=== PATIENT | male | born 1945 | race Caucasian/White ===

== ENCOUNTER 2017-01-28 21:07 | Emergency (ER) | payer MEDICARE ==
[2017-01-28] MEDS ORDERED: DIPH,PERTUS(ACELL)TETVAC-LF 0.5 ML VIAL IM ONE (21:17)
[2017-01-28] MEDS ORDERED: SODIUM CHLORIDE 0.9% 1,000 ML IV STA (21:17)
[2017-01-28 21:21] LABS: Glucose,Whole Blood 141 mg/dL (75-99)
[2017-01-28 21:23] LABS: Basophils # (A) 0.2 k/uL (0-0.2); Basophils % (A) 2 %; CH 29.7; Eosinophils # (A) 0.9 k/uL (0-0.7); Eosinophils % (A) 7 %; HDW 2.37; HGB 14.7 gm/dL (13.0-17.5); Luc % (Auto) 2; Lymphocytes % (A) 15 %; MCHC 31.9 g/dL (31.0-37.0); MCV 87.8 fL (80.0-100.0); Mean Platelet Volume 6.9; Monocytes # (A) 0.8 k/uL (0-1.0); Monocytes % (A) 6 %; Neutrophils % (A) 68 %; RBC 5.24 m/uL (4.30-5.90); RDW 14.7 % (11.5-15.5); WBC 13.1 k/uL (3.8-10.6); WBC (Perox) 12.24
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
[2017-01-28 21:35] LABS: Partial Thromboplastin Time 24.7 sec (22.0-30.0)
[2017-01-28 21:37] LABS: ALT 51 U/L (21-72); AST 27 U/L (17-59); Alcohol <10 mg/dL; Alkaline Phosphatase 69 U/L (38-126); Amylase 117 U/L (30-110); Anion Gap 10 mmol/L; Blood Urea Nitrogen 34 mg/dL (9-20); Calcium 9.2 mg/dL (8.4-10.2); Carbon Dioxide 24 mmol/L (22-30); Chloride 100 mmol/L (98-107); Glucose 121 mg/dL (74-99); Non-African American GFR(MDRD) >60 (>60 ml/min/1.73 sqM); Potassium 4.9 mmol/L (3.5-5.1); Sodium 134 mmol/L (137-145); Total Bilirubin 0.6 mg/dL (0.2-1.3); Total Protein 6.5 g/dL (6.3-8.2)
[2017-01-28 21:38] VITALS: BP 139/91; PULSE 71; RESP 18; TEMP 98.1
[2017-01-28] MEDS ORDERED: MORPHINE SULFATE 4 MG/ML SYRINGE IVP STA (21:40)
[2017-01-28 21:42] LABS: Prothrombin Time 10.6 sec (9.0-12.0)
[2017-01-28 21:44] LABS: Creatine Kinase 85 U/L (55-170)
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
[2017-01-28 21:58] LABS: Creatine Kinase MB 1.2 ng/mL (0.0-2.4); Troponin I <0.012 ng/mL (0.000-0.034)
== END 2017-01-28 21:43 | disposition short-term general hospital (02) ==
LOC: EC 21:07
DX: T20.19XA Burn of first degree of multiple sites of head, face, and neck, initial encounter (principal); T21.19XA Burn of first degree of other site of trunk, initial encounter; T22.10XA Burn of first degree of shoulder and upper limb, except wrist and hand, unspecified site, initial encounter; T31.22 Burns involving 20-29% of body surface with 20-29% third degree burns; T59.811A Toxic effect of smoke, accidental (unintentional), initial encounter; J70.5 Respiratory conditions due to smoke inhalation; J45.909 Unspecified asthma, uncomplicated; I10 Essential (primary) hypertension; I25.10 Atherosclerotic heart disease of native coronary artery without angina pectoris; Z79.51 Long term (current) use of inhaled steroids; Z79.82 Long term (current) use of aspirin; Z79.899 Other long term (current) drug therapy; Z88.7 Allergy status to serum and vaccine; Z91.013 Allergy to seafood; Z91.030 Bee allergy status; Z91.048 Other nonmedicinal substance allergy status; W40.1XXA Explosion of explosive gases, initial encounter; Y92.009 Unspecified place in unspecified non-institutional (private) residence as the place of occurrence of the external cause; Y93.89 Activity, other specified
CPT/HCPCS: 99291; 96374; 36415; 86900; 86901; 80053; 82150; 82550; 82553; 83605; 83690; 84484; 85025; 85610; 85730; 86850; 80320; 71010; J2270; 93005

== ENCOUNTER → 2017-07-17 | Outpatient (CLI) | payer MEDICARE ==
[2017-07-17 16:01] LABS: Basophils # (A) 0.1 k/uL (0-0.2); Basophils % (A) 1 %; Eosinophils # (A) 0.7 k/uL (0-0.7); Eosinophils % (A) 7 %; HCT 44.6 % (39.0-53.0); HGB 13.8 gm/dL (13.0-17.5); Lymphocytes # (A) 1.7 k/uL (1.0-4.8); Lymphocytes % (A) 18 %; MCH 27.8 pg (25.0-35.0); MCV 89.8 fL (80.0-100.0); Mean Platelet Volume 6.7; Monocytes # (A) 0.5 k/uL (0-1.0); Monocytes % (A) 5 %; Neutrophils # (A) 6.6 k/uL (1.3-7.7); Neutrophils % (A) 68 %; Platelet Count 304 k/uL (150-450); RBC 4.96 m/uL (4.30-5.90); RDW 15.1 % (11.5-15.5); WBC 9.7 k/uL (3.8-10.6)
[2017-07-17 16:13] LABS: Anion Gap 9 mmol/L; Blood Urea Nitrogen 31 mg/dL (9-20); Calcium 9.2 mg/dL (8.4-10.2); Carbon Dioxide 27 mmol/L (22-30); Chloride 104 mmol/L (98-107); Glucose 94 mg/dL (74-99); Phosphorus 4.9 mg/dL (2.5-4.5); Potassium 4.9 mmol/L (3.5-5.1); Sodium 140 mmol/L (137-145)
[2017-07-17 16:39] LABS: Amorphous Sediment,Urine Rare /hpf; Appearance,Urine Clear (Clear); Bacteria,Urine Rare /hpf; Bilirubin,Urine Negative (Negative); Blood,Urine Small (Negative); Color,Urine Yellow; Glucose,Urine (UA) Negative (Negative); Ketones,Urine Negative (Negative); Leukocyte Esterase,Urine Negative (Negative); Mucus,Urine Rare /hpf; Nitrite,Urine Negative (Negative); PH, Urine 5.5 (5.0-8.0); Protein,Urine 2+ (Negative); RBC,Urine 2 /hpf (0-5); Specific Gravity,Urine 1.018 (1.001-1.035); Urobilinogen,Urine <2.0 mg/dL (<2.0); WBC,Urine 1 /hpf (0-5)
[2017-07-17 20:23] LABS: Creatinine,Urine Random 104.6 mg/dL
== END | disposition home or self-care (01) ==
LOC: LABWHC1 15:44
PROVIDERS: ATTEND Internal Medicine Nephrology
DX: N18.3 Chronic kidney disease, stage 3 (moderate) (principal)
CPT/HCPCS: 36415; 80048; 81001; 82570; 83970; 84100; 84156; 85025

== ENCOUNTER → 2017-11-21 | Outpatient (CLI) | payer MEDICARE ==
[2017-11-21 10:12] LABS: Appearance,Urine Clear (Clear); Bilirubin,Urine Negative (Negative); Blood,Urine Trace (Negative); Color,Urine Yellow; Glucose,Urine (UA) Negative (Negative); Ketones,Urine Negative (Negative); Leukocyte Esterase,Urine Negative (Negative); Mucus,Urine Rare /hpf; Nitrite,Urine Negative (Negative); PH, Urine 6.5 (5.0-8.0); Protein,Urine 2+ (Negative); RBC,Urine 1 /hpf (0-5); Specific Gravity,Urine 1.019 (1.001-1.035); Squamous Epithelial Cell,Urine <1 /hpf (0-4); Urobilinogen,Urine <2.0 mg/dL (<2.0); WBC,Urine <1 /hpf (0-5)
[2017-11-21 10:27] LABS: Creatinine,Urine Random 95.2 mg/dL
== END | disposition home or self-care (01) ==
LOC: LABWHC1 08:49
PROVIDERS: ATTEND Internal Medicine Nephrology
DX: N18.3 Chronic kidney disease, stage 3 (moderate) (principal)
CPT/HCPCS: 81001; 82570; 84156

== ENCOUNTER → 2018-02-03 | Outpatient (CLI) | payer MEDICARE ==
--- NOTE | 2018-02-03 18:00 | CONS ---
CONSULTATION DATE OF SERVICE: 02/03/2018 This patient is a 72-year-old gentleman who has been followed in the sleep center for treatment of obstructive sleep apnea-hypopnea syndrome. Patient continues to use his CPAP equipment successfully. Sometimes he feels dryness in his mouth. Sometimes he takes his mask off during the second part of the night. [place] Sleepiness Scale today is 14. I checked his CPAP unit. CPAP pressure is 11 cm of water. Usage for the last month is 100% of the nights, 30/30 nights, for more than 4 hours, average 6 hours. Leak is 22 L/minute, which is acceptable. Apnea-hypopnea index reading is only 2.3, which is totally normal. MEDICATIONS: 1. Lisinopril. 2. Furosemide. 3. Spironolactone. 4. Symbicort. 5. Aspirin. PHYSICAL EXAMINATION: GENERAL A pleasant patient in no distress. VITAL SIGNS: BP 107/74, HR 65, RR 18, height 5 feet 9-1/2 inches, weight 230.4, body mass index 33.4, temperature 98.2, oxygen saturation at room air 94%. HEENT: PERRLA, EOMI. Evaluation of oropharynx showed tongue protrudes midline; moderately low position of soft palate. Restriction of nasal breathing. NECK: Supple. No JVD. Thyroid is not palpable. LUNGS: Clear to percussion and to auscultation. Good air exchange. No wheezing or rhonchi. HEART: S1, S2 regular. No murmurs, gallops or rubs. ABDOMEN: Soft and nontender. Bowel sounds are present. No organomegaly appreciated. EXTREMITIES : No clubbing or cyanosis. BILLING DEPARTMENT SUPERVISOR: Awake, alert, and oriented X3. Cranial nerves 2 to 7 intact. There is no fasciculation or atrophy. noted. No focal deficits observed. Mild finger tremor. IMPRESSION: 1. Obstructive sleep apnea-hypopnea syndrome. Patient demonstrated 100% compliance with treatment, benefitting from treatment. 2. Hypertension. 3. History of asthma. 4. Parkinson disease. 5. Obesity. PLAN: 1. I showed the patient how to adjust his heated humidifier in the machine. I changed this regimen to manual and we increased the level of humidity to the level of 6 instead of level 4 as it was before. 2. Patient will continue to use CPAP every night. 3. Watching weight. 4. Sleep hygiene with regular time in bed for at least 8 hours. 5. No driving if feeling any sleepiness. 6. Prescription for all necessary CPAP supplies, including [place] mask, tube, filters. 7. Follow-up visit in 1 year or earlier if patient has any problems. Thank you very much for allowing me to participate in the management of your patient. Sincerely, Juan Carlos Brock MD, PhD, FAASM Diplomat of [place] [employer] [place] [employer] Architect of [facility] [place] MMODL / LOISN: [id number] /
== END | disposition home or self-care (01) ==
LOC: SLEEP 16:16
PROVIDERS: ATTEND Internal Medicine
DX: G47.33 Obstructive sleep apnea (adult) (pediatric) (principal); G20 Parkinson's disease; E66.9 Obesity, unspecified; I10 Essential (primary) hypertension; J45.909 Unspecified asthma, uncomplicated; Z99.89 Dependence on other enabling machines and devices; Z79.82 Long term (current) use of aspirin; Z79.899 Other long term (current) drug therapy; Z79.51 Long term (current) use of inhaled steroids; Z68.33 Body mass index [BMI] 33.0-33.9, adult

== ENCOUNTER → 2018-03-15 | Outpatient (CLI) | payer MEDICARE ==
[2018-03-15 14:17] LABS: HCT 43.4 % (39.0-53.0); HGB 13.9 gm/dL (13.0-17.5); MCH 27.9 pg (25.0-35.0); MCHC 32.1 g/dL (31.0-37.0); Mean Platelet Volume 6.5; Platelet Count 283 k/uL (150-450); RBC 4.98 m/uL (4.30-5.90); RDW 14.2 % (11.5-15.5); WBC 7.6 k/uL (3.8-10.6)
[2018-03-15 14:28] LABS: Anion Gap 7 mmol/L; Blood Urea Nitrogen 29 mg/dL (9-20); Calcium 8.8 mg/dL (8.4-10.2); Carbon Dioxide 26 mmol/L (22-30); Chloride 105 mmol/L (98-107); Glucose 111 mg/dL (74-99); Phosphorus 3.1 mg/dL (2.5-4.5); Sodium 138 mmol/L (137-145)
[2018-03-15 14:31] LABS: Appearance,Urine Clear (Clear); Bilirubin,Urine Negative (Negative); Blood,Urine Trace (Negative); Color,Urine Yellow; Glucose,Urine (UA) Negative (Negative); Ketones,Urine Negative (Negative); Leukocyte Esterase,Urine Negative (Negative); Mucus,Urine Rare /hpf; Nitrite,Urine Negative (Negative); PH, Urine 6.5 (5.0-8.0); Protein,Urine 2+ (Negative); RBC,Urine 4 /hpf (0-5); Specific Gravity,Urine 1.013 (1.001-1.035); Urobilinogen,Urine <2.0 mg/dL (<2.0); WBC,Urine 1 /hpf (0-5)
[2018-03-15 14:56] LABS: Creatinine,Urine Random 60.3 mg/dL
== END | disposition home or self-care (01) ==
LOC: LABWHC1 13:41
PROVIDERS: ATTEND Internal Medicine Nephrology
DX: I12.9 Hypertensive chronic kidney disease with stage 1 through stage 4 chronic kidney disease, or unspecified chronic kidney disease (principal); N18.3 Chronic kidney disease, stage 3 (moderate); R80.9 Proteinuria, unspecified; R60.9 Edema, unspecified
CPT/HCPCS: 36415; 80048; 81001; 82570; 83970; 84100; 84156; 85027

== ENCOUNTER → 2019-04-15 | Outpatient (CLI) | payer MEDICARE ==
[2019-04-15 14:58] LABS: Basophils # (A) 0.1 k/uL (0-0.2); Basophils % (A) 1 %; Eosinophils # (A) 0.6 k/uL (0-0.7); Eosinophils % (A) 7 %; HGB 14.7 gm/dL (13.0-17.5); Lymphocytes # (A) 1.8 k/uL (1.0-4.8); Lymphocytes % (A) 20 %; MCH 28.9 pg (25.0-35.0); MCHC 32.7 g/dL (31.0-37.0); MCV 88.2 fL (80.0-100.0); Mean Platelet Volume 6.2; Monocytes # (A) 0.6 k/uL (0-1.0); Monocytes % (A) 6 %; Neutrophils # (A) 5.9 k/uL (1.3-7.7); Neutrophils % (A) 65 %; Platelet Count 338 k/uL (150-450); RDW 13.9 % (11.5-15.5)
[2019-04-15 15:10] LABS: Appearance,Urine Clear (Clear); Bilirubin,Urine Negative (Negative); Blood,Urine Small (Negative); Color,Urine Yellow; Glucose,Urine (UA) Negative (Negative); Hyaline Casts,Urine 3 /lpf (0-2); Ketones,Urine Negative (Negative); Leukocyte Esterase,Urine Negative (Negative); Mucus,Urine Rare /hpf; Nitrite,Urine Negative (Negative); PH, Urine 5.5 (5.0-8.0); Protein,Urine 2+ (Negative); RBC,Urine <1 /hpf (0-5); Specific Gravity,Urine 1.015 (1.001-1.035); Urobilinogen,Urine <2.0 mg/dL (<2.0); WBC,Urine <1 /hpf (0-5)
[2019-04-15 19:09] LABS: African American GFR (CKD) 86.2 (60.0-200.0); Albumin 4.3 g/dL (3.80-4.90); Albumin/Globulin Ratio 2.15 (1.60-3.17); Anion Gap 8.8 mmol/L (4.00-12.00); Calcium 9.4 mg/dL (8.7-10.3); Carbon Dioxide 27.2 mmol/L (21.6-31.8); Phosphorus 3.8 mg/dL (2.4-5.1); Potassium 4.7 mmol/L (3.5-5.5); Total Protein 6.3 g/dL (6.2-8.2)
[2019-04-15 20:02] LABS: Creatinine,Urine Random 70.6 mg/dL
[2019-04-15 20:35] LABS: Total Protein,Urine Random 281.8 mg/dL (0.0-13.5)
== END ==
LOC: LABWHC1 13:45
PROVIDERS: ATTEND Internal Medicine Nephrology
DX: R80.9 Proteinuria, unspecified (principal)
CPT/HCPCS: 36415; 80053; 81001; 82570; 83970; 84100; 84156; 85025

== ENCOUNTER → 2024-01-01 | Outpatient (CLI) | payer MEDICARE ==
[2024-01-01 20:24] LABS: HCT 41.4 % (39.6-50.0); HGB 13.3 g/dL (13.0-17.0); MCH 29.2 pg (27.0-32.0); MCHC 32.1 g/dL (32.0-37.0); MCV 90.8 FL (80.0-97.0); Mean Platelet Volume 9.6 FL (9.5-12.2); NRBC Per 100 WBC 0 X 10*3/uL (0.00-0.01); Platelet Count 308 X 10*3/uL (140-440); RBC 4.56 X 10*6/uL (4.40-5.60); WBC 7.36 X 10*3/uL (4.50-10.00)
[2024-01-01 21:08] LABS: ALT 5 U/L (10-49); AST 21 U/L (14-35); Albumin 4.3 g/dL (3.8-4.9); Albumin/Globulin Ratio 1.87 Ratio (1.60-3.17); Alkaline Phosphatase 70 U/L (41-126); BUN/Creat Ratio 23.06 Ratio (12.00-20.00); Blood Urea Nitrogen 36.9 mg/dL (9.0-27.0); Calcium 9.2 mg/dL (8.7-10.3); Carbon Dioxide 21.6 mmol/L (21.6-31.8); Chloride 104 mmol/L (96-109); Chol/HDL Ratio 5.86 Ratio; Globulin 2.3 g/dL (1.6-3.3); Glucose 96 mg/dL (70-110); LDL Cholesterol,Calculated 182.4 mg/dL (0.0-131.0); Magnesium 2.2 mg/dL (1.5-2.4); Potassium 5.2 mmol/L (3.5-5.5); Sodium 138 mmol/L (135-145); T4, Free (Free Thyroxine) 1.37 ng/dL (0.80-1.80); Total Bilirubin 0.7 mg/dL (0.3-1.2); Total Protein 6.6 g/dL (6.2-8.2)
[2024-01-02 11:47] LABS: Appearance,Urine Clear (Clear); Bilirubin,Urine Negative (Negative); Blood,Urine Negative (Negative); Color,Urine Yellow (Yellow); Ketones,Urine Negative (Negative); Nitrite,Urine Negative (Negative); PH, Urine 5.5; Specific Gravity,Urine 1.017 (1.001-1.030); Urobilinogen,Urine 0.2 E.U./DL
[2024-01-02 12:01] LABS: Bacteria,Urine None Seen (None Seen)
== END | disposition home or self-care (01) ==
LOC: LABWHC1 15:07
PROVIDERS: ATTEND Internal Medicine Cardiovascular Disease
DX: I11.9 Hypertensive heart disease without heart failure (principal); I48.19 Other persistent atrial fibrillation; E78.5 Hyperlipidemia, unspecified; E55.9 Vitamin D deficiency, unspecified; R68.89 Other general symptoms and signs; R79.9 Abnormal finding of blood chemistry, unspecified; R53.83 Other fatigue; R39.9 Unspecified symptoms and signs involving the genitourinary system
CPT/HCPCS: 36415; 80053; 80061; 81001; 82306; 83036; 83735; 84153; 84403; 84439; 84443; 85027

== ENCOUNTER 2025-01-07 19:00 | Inpatient (IN) | payer MEDICARE ==
--- NOTE | 2025-01-07 19:22 | ED ---
Dizziness HPI - General Chief Complaint: Syncope Stated Complaint: Hypotenstion Time Seen by Provider: 01/07/25 19:05 Source: patient, RN notes reviewed, old records reviewed Mode of arrival: EMS Limitations: no limitations - History of Present Illness Initial Comments: This is a 79-year-old male to the ER for evaluation patient presents today for evaluation of a syncopal event occurred while outside doing lawn work. Patient has symptoms of lightheadedness and dizziness and weakness here in the ER also complaining of abdominal pain. History of heart disease MD Complaint: dizziness, lightheadedness, other (Patient did have a syncopal event) History of Same: Yes History of Trauma: Yes Severity: severe Worsens With: nothing Associated Symptoms: loss of appetite, shortness of breath, weakness - Related Data Home Medications Medication Instructions Recorded Confirmed Budesonide-Formot 160-4.5 Mcg 2 puff INHALATION RT-BID PRN 03/13/15 01/07/25 [Symbicort 160-4.5 Mcg Inhaler] EPINEPHrine [Epipen 2-Adolfo] 0.3 mg IM ONCE PRN 01/28/17 01/07/25 Spironolactone [Aldactone] 25 mg PO DAILY 01/28/17 01/07/25 lisinopriL [Zestril] 10 mg PO BID 01/28/17 01/07/25 Amiodarone [Cordarone] 200 mg PO DAILY 01/07/25 01/07/25 Apixaban [Eliquis] 5 mg PO BID 01/07/25 01/07/25 Carbidopa-Levodopa 25-100 mg 1.5 tab PO TID 01/07/25 01/07/25 [Sinemet 25-100] Memantine [Namenda] 10 mg PO BID 01/07/25 01/07/25 Venlafaxine HCl [Effexor XR] 75 mg PO DAILY 01/07/25 01/07/25 Allergies Allergy/AdvReac Type Severity Reaction Status Date / Time iodine Allergy Rash/Hives Verified 01/07/25 19:41 shellfish derived [Shellfish] Allergy Unknown Verified 01/07/25 19:41 tetanus and diphtheria Allergy Unknown Verified 01/07/25 19:41 toxoids [tetanus & diphtheria toxoids] venom-honey bee Allergy Anaphylaxis Verified 01/07/25 19:41 [bee venom (honey bee)] Review of Systems ROS Statement: Those systems with pertinent positive or pertinent negative responses have been documented in the HPI. ROS Other: All systems not noted in ROS Statement are negative. Past Medical History Past Medical History: Asthma, Coronary Artery Disease (CAD), Cancer, Hypertension, Prostate Disorder, Thyroid Disorder History of Any Multi-Drug Resistant Organisms: None Reported Past Surgical History: Hernia Repair, Prostate Surgery, Tonsillectomy Additional Past Surgical History / Comment(s): cardiac angioplasty Past Psychological History: No Psychological Hx Reported Smoking Status: Never smoker Past Alcohol Use History: Occasional Past Drug Use History: None Reported General Exam Limitations: no limitations General appearance: alert, in no apparent distress Head exam: Present: atraumatic, normocephalic, normal inspection Eye exam: Present: normal appearance, PERRL, EOMI. Absent: scleral icterus, conjunctival injection, periorbital swelling ENT exam: Present: normal exam, mucous membranes moist Neck exam: Present: normal inspection. Absent: tenderness, meningismus, lymphadenopathy Respiratory exam: Present: normal lung sounds bilaterally. Absent: respiratory distress, wheezes, rales, rhonchi, stridor Cardiovascular Exam: Present: regular rate, normal rhythm, normal heart sounds. Absent: systolic murmur, diastolic murmur, rubs, gallop, clicks GI/Abdominal exam: Present: soft, normal bowel sounds. Absent: distended, tenderness, guarding, rebound, rigid Extremities exam: Present: normal inspection, full ROM, normal capillary refill. Absent: tenderness, pedal edema, joint swelling, calf tenderness Back exam: Present: normal inspection Neurological exam: Present: alert, oriented X3, CN II-XII intact Psychiatric exam: Present: normal affect, normal mood Skin exam: Present: warm, dry, intact, normal color. Absent: rash Course Vital Signs 01/07/25 01/07/25 01/07/25 19:03 19:33 20:42 Temperature 97.5 F L Pulse Rate 61 55 L 52 L Respiratory 20 17 17 Rate Blood Pressure 74/43 111/69 98/75 O2 Sat by Pulse 91 L 98 Oximetry 01/07/25 01/07/25 01/07/25 21:00 21:06 22:30 Temperature Pulse Rate 53 L 47 L 61 Respiratory 17 17 17 Rate Blood Pressure 67/51 74/50 81/56 O2 Sat by Pulse 95 Oximetry - Reevaluation(s) Reevaluation #1: 01/07/25 23:02 Medical records reviewed Patient seen and emergency department by Dr. Obando cardiology regarding bradycardia and hypotension Reevaluation #2: 01/07/25 23:02 Patient's blood pressure remains labile but improving Dopamine for low heart rate low blood pressure Reevaluation #3: 01/07/25 23:02 Patient informed of results and questions answered Reevaluation #4: Was pt. sent in by a medical professional or institution (, [facility], RELIABILITY TECHNICIAN, urgent care, hospital, or [facility]...) When possible be specific @ -no Did you speak to anyone other than the patient for history (EMS, parent, family, police, friend...)? What history was obtained from this source @ -no Did you review nursing and triage notes (agree or disagree)? Why? @ -agree Are old charts reviewed (outside hosp., previous admission, EMS record, old EKG, old radiological studies, urgent care reports/EKG's, [facility] records)? Report findings @ -yes Differential Diagnosis (chest pain, altered mental status, abdominal pain women, abdominal pain men, vaginal bleeding, weakness, fever, dyspnea, syncope, he adache, dizziness, GI bleed, back pain, seizure, CVA, palpatations, mental health, musculoskeletal)? @ -prior EKG interpreted by me (3pts min.). @ -yes X-rays interpreted by me (1pt min.). @ -yes negative for acute disease CT interpreted by me (1pt min.). @ -no U/S interpreted by me (1pt. min.). @ -no What testing was considered but not performed or refused? (CT, X-rays, U/S, labs)? Why? @ -none What meds were considered but not given or refused? Why? @ -none Did you discuss the management of the patient with other professionals (professionals i.e. [facility], RELIABILITY TECHNICIAN, lab, RT, psych nurse, social worker palliative care, risk control manager, teacher, combat information center officer, case coordinator)? Give summary @ -no Was smoking cessation discussed for >3mins.? @ -no Was critical care preformed (if so, how long)? @ -no Were there social determinants of health that impacted care today? How? (Homelessness, low income, unemployed, alcoholism, drug addiction, transportation, low edu. Level, literacy, decrease access to med. care, alf, rehab)? @ -none Was there de-escalation of care discussed even if they declined (Discuss DNR or withdrawal of care, Hospice)? DNR status @ -no What co-morbidities impacted this encounter? (DM, HTN, Smoking, COPD, CAD, Cancer, CVA, ARF, Chemo, Hep., AIDS, mental health diagnosis, sleep apnea, m orbid obesity)? @ -none Was patient admitted / discharged? Hospital course, mention meds given and route, prescriptions, significant lab abnormalities, going to OR and other pertinent info. @ - Undiagnosed new problem with uncertain prognosis? @ -no Drug Therapy requiring intensive monitoring for toxicity (Heparin, Nitro, Insulin, Cardizem)? @ -no Were any procedures done? @ -no Diagnosis/symptom? @ - Acute, or Chronic, or Acute on Chronic? @ -Acute Uncomplicated (without systemic symptoms) or Complicated (systemic symptoms)? @ -Complicated Side effects of treatment? @ -no Exacerbation, Progression, or Severe Exacerbation? @ -exacerbation Poses a threat to life or bodily function? How? (Chest pain, USA, SC, pneumonia, PE, COPD, DKA, ARF, appy, cholecystitis, CVA, Diverticulitis, Homicidal, Suicidal, threat to staff... and all critical care pts) @ -yes Reevaluation #5: Related for differential Syncope: Valvular disease, hypertrophic cardiomyopathy, pulmonary embolism, tamponade, tachycardia, bradycardia, SC, hypovolemia, hemorrhage, dissection, anemia, intracranial hemorrhage, seizure, hypoglycemia, carbon monoxide poisoning, this is not meant to be an all-inclusive list. - Consultations Consultation #1: Spoke with linda who agrees to admit this patient EKG Findings - EKG Comments: EKG Findings:: EKG is bradycardia 49 [place] 161 QRS 121 QTc 462 - EKG Results: EKG: interpreted by RONEN Medical Decision Making - Medical Decision Making 79 male syncopal event bradycardia hypotension we will admit for cardiac observation - Lab Data Result diagrams: 01/07/25 19:23 01/07/25 19:23 Lab Results 01/07/25 01/07/25 01/07/25 Range/Units 19:23 19:23 19:23 WBC 15.53 H (4.50-10.00) 10*3/uL RBC 3.79 L (4.40-5.60) 10*6/uL Hgb 11.7 L (13.0-17.0) g/dL Hct 35.6 L (39.6-50.0) % MCV 93.9 (80.0-97.0) fL MCH 30.9 (27.0-32.0) pg MCHC 32.9 (32.0-37.0) g/dL Plt Count 267 (140-440) 10*3/uL MPV 9.1 L (9.5-12.2) fL Immature Gran % (Auto) 0.5 % Neutrophils % 81.9 % Lymphocytes % 9.7 % Monocytes % 5.3 % Eosinophils % 2.1 % Basophils % 0.5 % Immature Gran # 0.08 H (0.00-0.04) 10*3/uL Neutrophils # 12.72 H (1.80-7.70) 10*3/uL Lymphocytes # 1.50 (0.90-5.00) 10*3/uL Monocytes # 0.83 (0.20-1.00) 10*3/uL Eosinophils # 0.32 (0.04-0.35) 10*3/uL Basophils # 0.08 (0.00-0.10) 10*3/uL PT 11.3 (10.0-12.5) sec INR 1.0 (<1.2) APTT 19.7 L (22.0-30.0) sec Sodium 138 (137-145) mmol/L Potassium 5.0 (3.5-5.1) mmol/L Chloride 108 H (98-107) mmol/L Carbon Dioxide 19 L (22-30) mmol/L Anion Gap 11 mmol/L BUN 53 H (9-20) mg/dL Creatinine 2.16 H (0.66-1.25) mg/dL Est GFR (CKD-EPI)AfAm 32 (>60 ml/min/1.73 sqM) Est GFR (CKD-EPI)NonAf 28 (>60 ml/min/1.73 sqM) Glucose 156 H (74-99) mg/dL Plasma Lactic Acid Obie (0.7-2.0) mmol/L Calcium 8.5 (8.4-10.2) mg/dL Phosphorus 4.8 H (2.5-4.5) mg/dL Magnesium 2.6 H (1.6-2.3) mg/dL Total Bilirubin 0.7 (0.2-1.3) mg/dL AST 28 (17-59) U/L ALT 8 (4-49) U/L Alkaline Phosphatase 58 (38-126) U/L Creatine Kinase (55-170) U/L Troponin I (0.000-0.034) ng/mL NT-Pro-B Natriuret Pep 561 pg/mL Total Protein 5.7 L (6.3-8.2) g/dL Albumin 3.5 (3.5-5.0) g/dL TSH 4.250 (0.465-4.680) mIU/L Urine Color Urine Appearance (Clear) Urine pH (5.0-8.0) Ur Specific Preston (1.001-1.035) Urine Protein (Negative) Urine Glucose (UA) (Negative) Urine Ketones (Negative) Urine Blood (Negative) Urine Nitrite (Negative) Urine Bilirubin (Negative) Urine Urobilinogen (<2.0) mg/dL Ur Leukocyte Esterase (Negative) Urine RBC (0-5) /hpf Urine WBC (0-5) /hpf Amorphous Sediment (None) /hpf Urine Bacteria (None) /hpf Hyaline Casts (0-2) /lpf Urine Mucus (None) /hpf 01/07/25 01/07/25 01/07/25 Range/Units 19:23 19:23 19:23 WBC (4.50-10.00) 10*3/uL RBC (4.40-5.60) 10*6/uL Hgb (13.0-17.0) g/dL Hct (39.6-50.0) % MCV (80.0-97.0) fL MCH (27.0-32.0) pg MCHC (32.0-37.0) g/dL Plt Count (140-440) 10*3/uL MPV (9.5-12.2) fL Immature Gran % (Auto) % Neutrophils % % Lymphocytes % % Monocytes % % Eosinophils % % Basophils % % Immature Gran # (0.00-0.04) 10*3/uL Neutrophils # (1.80-7.70) 10*3/uL Lymphocytes # (0.90-5.00) 10*3/uL Monocytes # (0.20-1.00) 10*3/uL Eosinophils # (0.04-0.35) 10*3/uL Basophils # (0.00-0.10) 10*3/uL PT (10.0-12.5) sec INR (<1.2) APTT (22.0-30.0) sec Sodium (137-145) mmol/L Potassium (3.5-5.1) mmol/L Chloride (98-107) mmol/L Carbon Dioxide (22-30) mmol/L Anion Gap mmol/L BUN (9-20) mg/dL Creatinine (0.66-1.25) mg/dL Est GFR (CKD-EPI)AfAm (>60 ml/min/1.73 sqM) Est GFR (CKD-EPI)NonAf (>60 ml/min/1.73 sqM) Glucose (74-99) mg/dL Plasma Lactic Acid Obie 1.7 (0.7-2.0) mmol/L Calcium (8.4-10.2) mg/dL Phosphorus (2.5-4.5) mg/dL Magnesium (1.6-2.3) mg/dL Total Bilirubin (0.2-1.3) mg/dL AST (17-59) U/L ALT (4-49) U/L Alkaline Phosphatase (38-126) U/L Creatine Kinase 101 (55-170) U/L Troponin I <0.012 (0.000-0.034) ng/mL NT-Pro-B Natriuret Pep pg/mL Total Protein (6.3-8.2) g/dL Albumin (3.5-5.0) g/dL TSH (0.465-4.680) mIU/L Urine Color Urine Appearance (Clear) Urine pH (5.0-8.0) Ur Specific Preston (1.001-1.035) Urine Protein (Negative) Urine Glucose (UA) (Negative) Urine Ketones (Negative) Urine Blood (Negative) Urine Nitrite (Negative) Urine Bilirubin (Negative) Urine Urobilinogen (<2.0) mg/dL Ur Leukocyte Esterase (Negative) Urine RBC (0-5) /hpf Urine WBC (0-5) /hpf Amorphous Sediment (None) /hpf Urine Bacteria (None) /hpf Hyaline Casts (0-2) /lpf Urine Mucus (None) /hpf 01/07/25 Range/Units 21:30 WBC (4.50-10.00) 10*3/uL RBC (4.40-5.60) 10*6/uL Hgb (13.0-17.0) g/dL Hct (39.6-50.0) % MCV (80.0-97.0) fL MCH (27.0-32.0) pg MCHC (32.0-37.0) g/dL Plt Count (140-440) 10*3/uL MPV (9.5-12.2) fL Immature Gran % (Auto) % Neutrophils % % Lymphocytes % % Monocytes % % Eosinophils % % Basophils % % Immature Gran # (0.00-0.04) 10*3/uL Neutrophils # (1.80-7.70) 10*3/uL Lymphocytes # (0.90-5.00) 10*3/uL Monocytes # (0.20-1.00) 10*3/uL Eosinophils # (0.04-0.35) 10*3/uL Basophils # (0.00-0.10) 10*3/uL PT (10.0-12.5) sec INR (<1.2) APTT (22.0-30.0) sec Sodium (137-145) mmol/L Potassium (3.5-5.1) mmol/L Chloride (98-107) mmol/L Carbon Dioxide (22-30) mmol/L Anion Gap mmol/L BUN (9-20) mg/dL Creatinine (0.66-1.25) mg/dL Est GFR (CKD-EPI)AfAm (>60 ml/min/1.73 sqM) Est GFR (CKD-EPI)NonAf (>60 ml/min/1.73 sqM) Glucose (74-99) mg/dL Plasma Lactic Acid Obie (0.7-2.0) mmol/L Calcium (8.4-10.2) mg/dL Phosphorus (2.5-4.5) mg/dL Magnesium (1.6-2.3) mg/dL Total Bilirubin (0.2-1.3) mg/dL AST (17-59) U/L ALT (4-49) U/L Alkaline Phosphatase (38-126) U/L Creatine Kinase (55-170) U/L Troponin I (0.000-0.034) ng/mL NT-Pro-B Natriuret Pep pg/mL Total Protein (6.3-8.2) g/dL Albumin (3.5-5.0) g/dL TSH (0.465-4.680) mIU/L Urine Color Yellow Urine Appearance Clear (Clear) Urine pH 5.5 (5.0-8.0) Ur Specific Preston 1.011 (1.001-1.035) Urine Protein 1+ H (Negative) Urine Glucose (UA) Negative (Negative) Urine Ketones Negative (Negative) Urine Blood Negative (Negative) Urine Nitrite Negative (Negative) Urine Bilirubin Negative (Negative) Urine Urobilinogen 2.0 (<2.0) mg/dL Ur Leukocyte Esterase Negative (Negative) Urine RBC <1 (0-5) /hpf Urine WBC 6 H (0-5) /hpf Amorphous Sediment Rare H (None) /hpf Urine Bacteria Rare H (None) /hpf Hyaline Casts 21 H (0-2) /lpf Urine Mucus Rare H (None) /hpf - EKG Data -: EKG Interpreted by Me (EKG is sinus bradycardia 49 [place] 161 QRS 121 QTc 462) Critical Care Time Critical Care Time: Yes Total Critical Care Time: 31 Disposition Clinical Impression: Syncope, Syncope due to orthostatic hypotension, Bradycardia Disposition: ADMITTED IP TO THIS HOSP Condition: Serious Is patient prescribed a controlled substance at d/c from ED?: No Time of Disposition: 22:30
[2025-01-07 19:38] LABS: Basophils # (A) 0.08 10*3/uL (0.00-0.10); Basophils % (A) 0.5 %; Eosinophils # (A) 0.32 10*3/uL (0.04-0.35); Eosinophils % (A) 2.1 %; HCT 35.6 % (39.6-50.0); HGB 11.7 g/dL (13.0-17.0); Lymphocytes # (A) 1.50 10*3/uL (0.90-5.00); Lymphocytes % (A) 9.7 %; MCH 30.9 pg (27.0-32.0); MCHC 32.9 g/dL (32.0-37.0); MCV 93.9 fL (80.0-97.0); Monocytes # (A) 0.83 10*3/uL (0.20-1.00); Monocytes % (A) 5.3 %; Neutrophils # (A) 12.72 10*3/uL (1.80-7.70); Neutrophils % (A) 81.9 %; Platelet Count 267 10*3/uL (140-440); RBC 3.79 10*6/uL (4.40-5.60); RDW 13.9 % (11.5-14.5); WBC 15.53 10*3/uL (4.50-10.00)
[2025-01-07] MEDS: FAMOTIDINE 20 MG/2 ML VIAL IV STA (19:57)
[2025-01-07] MEDS: methylPREDNISolone SOD SUCCI 125 MG/2 ML VIAL IV STA (19:59)
[2025-01-07] MEDS: diphenhydrAMINE 50 MG/ML 1 ML VIAL IVP STA (20:00)
[2025-01-07 20:03] LABS: ALT 8 U/L (4-49); AST 28 U/L (17-59); African American GFR (CKD) 32 (>60 ml/min/1.73 sqM); Albumin 3.5 g/dL (3.5-5.0); Alkaline Phosphatase 58 U/L (38-126); Anion Gap 11 mmol/L; Blood Urea Nitrogen 53 mg/dL (9-20); Calcium 8.5 mg/dL (8.4-10.2); Carbon Dioxide 19 mmol/L (22-30); Chloride 108 mmol/L (98-107); Glucose 156 mg/dL (74-99); Magnesium 2.6 mg/dL (1.6-2.3); Non-African American GFR(CKD) 28 (>60 ml/min/1.73 sqM); Potassium 5.0 mmol/L (3.5-5.1); Sodium 138 mmol/L (137-145); Total Protein 5.7 g/dL (6.3-8.2)
[2025-01-07] MEDS: SODIUM CHLORIDE 0.9% 1,000 ML IV SCH (20:05)
[2025-01-07 20:09] LABS: INR 1.0 (<1.2); Prothrombin Time 11.3 sec (10.0-12.5)
[2025-01-07 20:10] LABS: Partial Thromboplastin Time 19.7 sec (22.0-30.0)
[2025-01-07 20:11] LABS: NT-Pro-B-Type Natriuretic Pept 561 pg/mL
[2025-01-07] MEDS: HYDROCORTISONE SUCCINATE 100 MG/2 ML VIAL IV STA (21:11)
[2025-01-07] MEDS: ATROPINE SULFATE 0.1 MG/ML 10ML SYRINGE IV STA (21:13)
[2025-01-07] MEDS: SODIUM CHLORIDE 0.9% 500 ML 500 ML IV ONE (21:16)
--- NOTE | 2025-01-07 21:33 | CT ---
EXAMINATION TYPE: CT abdomen pelvis wo con DATE OF EXAM: 01/07/2025 8:34 PM COMPARISON: CT abdomen pelvis most recent from CLINICAL INDICATION: Male, 79 years old with history of pain; pain TECHNIQUE: Axial CT abdomen pelvis wo con;Sagittal and coronal reformats were created on a separate workstation. Oral contrast used: without Oral Contrast (none if empty) CT DLP: 1068.4 mGycm, Automated exposure control for dose reduction was used. FINDINGS: LOWER CHEST: Infiltrating opacities at the lung bases which could reflect atelectasis and/or pneumoni a. ABDOMEN LIVER: Unremarkable GALLBLADDER AND BILE DUCTS: Layering increased densities within the lumen consistent with gallstones are present. PANCREAS: Unremarkable. SPLEEN: Unremarkable. ADRENAL GLANDS: Unremarkable. KIDNEYS AND URETERS: No evidence of hydronephrosis or renal calculus. The ureters are unremarkable. Simple fluid cystic structure adjacent to the left kidney and left upper quadrant measuring 9.0 cm. PELVIS BLADDER: No evidence for wall thickening or mass given limitations of exam. REPRODUCTIVE: Unremarkable. ABDOMEN & PELVIS STOMACH AND BOWEL: Stomach and duodenum are unremarkable. Impacted rectosigmoid colonic stool burden with associated wall thickening and adjacent mesenteric stranding suggesting stercoral colitis. Diffu se liquid stool more proximal throughout the large bowel. Colonic diverticulosis. Large volume No hank dence of bowel obstruction. PERITONEUM/RETROPERITONEUM: No evidence of pneumoperitoneum or free fluid. VASCULATURE: No evidence of aortic aneurysm. MUSCULOSKELETAL: No acute osseous abnormalities. Anterolisthesis of L4 on L5. Osseous structures laisha neralized. LYMPH NODES: No gross evidence for lymphadenopathy. SOFT TISSUE/ABDOMINAL WALL: Fat-containing left inguinal hernia. IMPRESSION: 1. Large volume impacted rectosigmoid colonic stool burden with additional findings suggestive of st ercoral colitis. 2. Large volume liquid colonic stool burden upstream to region of impacted stool. 3. Lower lobe infiltrative opacities suggestive of atelectasis and/or pneumonia. [facility], , 01/07/2025 9:30 PM
[2025-01-07 21:44] LABS: Amorphous Sediment,Urine Rare /hpf; Bacteria,Urine Rare /hpf; Bilirubin,Urine Negative (Negative); Blood,Urine Negative (Negative); Color,Urine Yellow; Glucose,Urine (UA) Negative (Negative); Hyaline Casts,Urine 21 /lpf (0-2); Ketones,Urine Negative (Negative); Leukocyte Esterase,Urine Negative (Negative); Mucus,Urine Rare /hpf; Nitrite,Urine Negative (Negative); PH, Urine 5.5 (5.0-8.0); Protein,Urine 1+ (Negative); RBC,Urine <1 /hpf (0-5); Specific Gravity,Urine 1.011 (1.001-1.035); Urobilinogen,Urine 2.0 mg/dL (<2.0); WBC,Urine 6 /hpf (0-5)
[2025-01-07] MEDS ORDERED: NALOXONE 0.4 MG/ML 1 ML VIAL IV PRN (22:08)
[2025-01-07] MEDS: DEXTROSE 5%-0.45% NACL 1,000 ML IV SCH (22:34)
--- NOTE | 2025-01-07 23:46 | P.HPIM ---
History of Present Illness H&P Date: 01/07/25 Chief Complaint: Abdominal pain and dizziness with low blood pressure 79 year old male with history of atrial fibrillation, Parkinson's disease, and chronic kidney disease presents with abdominal pain and episode of dizziness. Patient reports feeling better than on arrival but continues to have abdominal pain. Episode began after carrying a 35-pound bag of bird food approximately 30-40 feet, after which patient became "wiped out." Patient measured blood pressure at home which was 44/30. Patient reports history of gastrointestinal bleeding episodes at home, typically seeing small amounts of blood with wiping, but today's episode was different with a larger amount of blood noted. Patient has been taking prunes and Dulcolax recently for constipation, resulting in liquid stools. Patient denies chest pain, trouble breathing, fevers, or chills. Patient is able to ur inate normally. while in the ICU , patient had an episode of bloody loose stool and became hypotensive with positive orthostatic , no chest pain no trouble breathing Patient denies tobacco, alcohol, or drug use. PMHx Atrial fibrillation, Parkinson's disease, chronic kidney disease. Patient has h istory of gastrointestinal bleeding and has had colonoscopies with polyp removal. Patient denies history of diabetes, stroke, heart attack, COPD, seizures, or hypertension. Review of systems All systems reviewed with pertinent positive negatives as per HPI Gastrointestinal: Abdominal pain, history of gastrointestinal bleeding, liquid stools related to laxative use Genitourinary: Able to urinate normally Constitutional: Denies fevers or chills Cardiovascular: Episode of dizziness and low blood pressure Pulmonary: Denies chest pain or trouble breathing Neurological: History of Parkinson's disease on exam Constitutional: No acute distress, conversant, pleasant Eyes: Anicteric sclerae, moist conjunctiva, Pupils equal round reactive to light ENMT: NC/AT Oropharynx clear, no erythema, or exudates Neck: Supple, no masses, or JVD No carotid bruits No thyromegaly Lungs: Clear to auscultation Clear to percussion Normal respiratory effort, no accessory muscle use Cardiovascular: Heart regular in rate and rhythm, No murmurs, gallops, or rubs No peripheral edema Abdominal: Soft, moderate distention , increase tympanic note to percussion Nontender, no guarding, rebound or rigidity Abdomen moving with respiration Extremities: No digital cyanosis No clubbing Pedal pulses intact and symmetrical Radial pulses intact and symmetrical No calf tenderness Psychiatric: Alert and oriented to person, place and time Appropriate affect fair judgement Neuro Muscles Strength 5/5 in all 4 extremities Sensation to light touch grossly present throughout Cranial nerves II-XII grossly intact Past Medical History Past Medical History: Asthma, Coronary Artery Disease (CAD), Cancer, Hypertension, Prostate Disorder, Thyroid Disorder History of Any Multi-Drug Resistant Organisms: None Reported Past Surgical History: Hernia Repair, Prostate Surgery, Tonsillectomy Additional Past Surgical History / Comment(s): cardiac angioplasty Past Psychological History: No Psychological Hx Reported Smoking Status: Never smoker Past Alcohol Use History: Occasional Past Drug Use History: None Reported - Past Family History Father Family Medical History: Myocardial Infarction ([place]) Medications and Allergies Home Medications Medication Instructions Recorded Confirmed Type Budesonide-Formot 160-4.5 Mcg 2 puff INHALATION RT-BID PRN 03/13/15 01/07/25 History [Symbicort 160-4.5 Mcg Inhaler] EPINEPHrine [Epipen 2-Adolfo] 0.3 mg IM ONCE PRN 01/28/17 01/07/25 History Spironolactone [Aldactone] 25 mg PO DAILY 01/28/17 01/07/25 History lisinopriL [Zestril] 10 mg PO BID 01/28/17 01/07/25 History Amiodarone [Cordarone] 200 mg PO DAILY 01/07/25 01/07/25 History Apixaban [Eliquis] 5 mg PO BID 01/07/25 01/07/25 History Carbidopa-Levodopa 25-100 mg 1.5 tab PO TID 01/07/25 01/07/25 History [Sinemet 25-100] Memantine [Namenda] 10 mg PO BID 01/07/25 01/07/25 History Venlafaxine HCl [Effexor XR] 75 mg PO DAILY 01/07/25 01/07/25 History Allergies Allergy/AdvReac Type Severity Reaction Status Date / Time iodine Allergy Rash/Hives Verified 01/07/25 19:41 shellfish derived [Shellfish] Allergy Unknown Verified 01/07/25 19:41 tetanus and diphtheria Allergy Unknown Verified 01/07/25 19:41 toxoids [tetanus & diphtheria toxoids] venom-honey bee Allergy Anaphylaxis Verified 01/07/25 19:41 [bee venom (honey bee)] Physical Exam Vitals: Vital Signs Temp Pulse Resp BP Pulse Ox 01/07/25 22:30 61 17 81/56 95 01/07/25 21:06 47 L 17 74/50 01/07/25 21:00 53 L 17 67/51 01/07/25 20:42 52 L 17 98/75 01/07/25 19:33 55 L 17 111/69 98 01/07/25 19:03 97.5 F L 61 20 74/43 91 L Intake and Output 01/07/25 01/07/25 01/08/25 14:59 22:59 06:59 Output Total 500 Balance -500 Output: Urine 500 Uretheral (Peñaloza) 500 Other: Weight 97.522 kg Results CBC & Chem 7: 01/08/25 05:40 01/08/25 05:24 Labs: Abnormal Lab Results - Last 24 Hours (Table) 01/07/25 01/07/25 01/07/25 Range/Units 19:23 19:23 19:23 WBC 15.53 H (4.50-10.00) 10*3/uL RBC 3.79 L (4.40-5.60) 10*6/uL Hgb 11.7 L (13.0-17.0) g/dL Hct 35.6 L (39.6-50.0) % MPV 9.1 L (9.5-12.2) fL Immature Gran # 0.08 H (0.00-0.04) 10*3/uL Neutrophils # 12.72 H (1.80-7.70) 10*3/uL APTT 19.7 L (22.0-30.0) sec Chloride 108 H (98-107) mmol/L Carbon Dioxide 19 L (22-30) mmol/L BUN 53 H (9-20) mg/dL Creatinine 2.16 H (0.66-1.25) mg/dL Glucose 156 H (74-99) mg/dL Phosphorus 4.8 H (2.5-4.5) mg/dL Magnesium 2.6 H (1.6-2.3) mg/dL Total Protein 5.7 L (6.3-8.2) g/dL Urine Protein (Negative) Urine WBC (0-5) /hpf Amorphous Sediment (None) /hpf Urine Bacteria (None) /hpf Hyaline Casts (0-2) /lpf Urine Mucus (None) /hpf 01/07/25 Range/Units 21:30 WBC (4.50-10.00) 10*3/uL RBC (4.40-5.60) 10*6/uL Hgb (13.0-17.0) g/dL Hct (39.6-50.0) % MPV (9.5-12.2) fL Immature Gran # (0.00-0.04) 10*3/uL Neutrophils # (1.80-7.70) 10*3/uL APTT (22.0-30.0) sec Chloride (98-107) mmol/L Carbon Dioxide (22-30) mmol/L BUN (9-20) mg/dL Creatinine (0.66-1.25) mg/dL Glucose (74-99) mg/dL Phosphorus (2.5-4.5) mg/dL Magnesium (1.6-2.3) mg/dL Total Protein (6.3-8.2) g/dL Urine Protein 1+ H (Negative) Urine WBC 6 H (0-5) /hpf Amorphous Sediment Rare H (None) /hpf Urine Bacteria Rare H (None) /hpf Hyaline Casts 21 H (0-2) /lpf Urine Mucus Rare H (None) /hpf Assessment and Plan Assessment: Patient with history of atrial fibrillation, Parkinson's disease, and chronic kidney disease presenting with gastrointestinal bleeding, orthostatic hypo tension, and acute kidney injury. 1. Gastrointestinal bleeding: - Patient reports larger than usual bleeding episode - History of previous GI bleeding and polyp removal - Plan: Surgery consultation for evaluation, monitor hemoglobin levels every 6 hours hold [facility] 2. Orthostatic hypotension: - Blood pressure dropped to 44/30 at home after exertion - Likely related to dehydration, possible bleeding - Plan: IV fluid resuscitation, 1 L bolus then maintain on 125 cc per hour LR monitor blood pressure positive orthosatic vitals 3. Acute kidney injury on chronic kidney disease: non oliguric - Creatinine elevated to 2.16, BUN 53 - Possibly related to dehydration or medication effects - Plan: Monitor renal function, investigate contributing factors monitor urine output 4. Bradycardia with prolonged QT interval: - Heart rate was initially slow but normalized without intervention - Plan: Cardiology consultation for evaluation 5. Atrial fibrillation: - Hold Eliquis anticoagulation due to GI bleeding 6. Parkinson's disease: - Continue current neurologist management DVT PPX SCD due to GI bleed Laboratory results: - Hemoglobin: 11.7 - White blood cell count: 15.5 (elevated) - Sodium: 138 - Potassium: 5 - BUN: 53 (elevated) - Creatinine: 2.16 (elevated, acute on chronic kidney injury) - Phosphorus: 4.8 - Magnesium: 2.6 - Troponins: Negative - Urinalysis: Unremarkable Imaging: - CT abdomen: Shows stool burden with liquid stool, consistent with patient's constipation history EKG: Bradycardia with prolonged QT interval
[2025-01-08 00:46] LABS: Glucose,Whole Blood 187 mg/dL (70-110)
[2025-01-08] MEDS: DOPamine DRIP 800 MG in DEXTROSE/WATER 1 250ML.BAG IV ONE (01:35)
[2025-01-08] MEDS: LACTATED RINGERS 1,000 ML IV SCH (05:51)
[2025-01-08] MEDS: LACTATED RINGERS 1,000 ML IV ONE (05:51)
[2025-01-08 06:01] LABS: Basophils # (A) 0.04 10*3/uL (0.00-0.10); Basophils % (A) 0.2 %; Eosinophils # (A) 0.00 10*3/uL (0.04-0.35); Eosinophils % (A) 0.0 %; HCT 40.7 % (39.6-50.0); HGB 12.9 g/dL (13.0-17.0); Lymphocytes # (A) 0.30 10*3/uL (0.90-5.00); Lymphocytes % (A) 1.7 %; MCH 29.9 pg (27.0-32.0); MCHC 31.7 g/dL (32.0-37.0); MCV 94.4 fL (80.0-97.0); Monocytes # (A) 1.01 10*3/uL (0.20-1.00); Monocytes % (A) 5.6 %; Neutrophils # (A) 16.54 10*3/uL (1.80-7.70); Neutrophils % (A) 92.1 %; Platelet Count 268 10*3/uL (140-440); RBC 4.31 10*6/uL (4.40-5.60); RDW 13.9 % (11.5-14.5); WBC 17.96 10*3/uL (4.50-10.00)
[2025-01-08 06:23] LABS: ALT 18 U/L (4-49); AST 26 U/L (17-59); African American GFR (CKD) 43 (>60 ml/min/1.73 sqM); Albumin 3.4 g/dL (3.5-5.0); Alkaline Phosphatase 43 U/L (38-126); Anion Gap 14 mmol/L; Blood Urea Nitrogen 54 mg/dL (9-20); Calcium 7.9 mg/dL (8.4-10.2); Carbon Dioxide 14 mmol/L (22-30); Chloride 109 mmol/L (98-107); Glucose 199 mg/dL (74-99); Magnesium 2.3 mg/dL (1.6-2.3); Non-African American GFR(CKD) 37 (>60 ml/min/1.73 sqM); Potassium 4.7 mmol/L (3.5-5.1); Sodium 137 mmol/L (137-145); Total Protein 5.7 g/dL (6.3-8.2)
[2025-01-08] MEDS ORDERED: SYMBICORT 160-4.5 MCG INHALER INHALATION PRN (07:20)
[2025-01-08] MEDS: VENLAFAXINE HCL ER 75 MG CAP PO SCH (08:38)
[2025-01-08] MEDS: MEMANTINE 10 MG TAB PO SCH (08:38)
[2025-01-08] MEDS: PANTOPRAZOLE 40 MG TABLET PO SCH (08:38)
[2025-01-08] MEDS: CARBIDOPA-LEVODOPA 25-100 MG 1 EACH TAB PO SCH (08:38)
[2025-01-08] MEDS: AMIODARONE 200 MG TAB PO SCH (08:38)
[2025-01-08] MEDS: PIPERACILLIN-TAZOBACTAM 3.375 GM in SODIUM CHLORIDE 0.9% 100 ML IVPB SCH (09:17)
--- NOTE | 2025-01-08 11:17 | P.CNPUL ---
History of Present Illness Consult date: 01/08/25 Requesting physician: Kassandra Ortiz Reason for consult: other (ICU management) Chief complaint: Syncope, dizziness, lightheadedness History of present illness: This is a 79-year-old white male with history of chronic atrial fibrillation, chronic kidney disease, Parkinson disease, previous history of lower GI bleeding from polyps, patient was seen in the ER yesterday with chief complaint of syncope at home and has been complaining of lightheadedness and dizziness with some vague abdominal pain and pressure. Apparently this all started after he was carrying a 35 pound bag of bird food for about 40 feet. He felt he was wiped out, blood pressure was noted to be low, and he also noted some more blood per rectum. Recently the patient has been taking prunes and Dulcolax for constipation. And because of this he was having intermittent episodes of liquid stools. At any rate patient was seen in the ER, and he was noted to have significant bradycardia. However in spite of bradycardia, patient maintained adequate blood pressure, did not require any pressors or any inotropes. I was notified about this patient by the ER physician, and cardiology was also notified at the same time, and the recommendation was to admit the patient to the ICU for close monitoring. Found out this morning that the patient was admitted to the ICU as an overflow. Seems to be comfortable, not in any d istress, patient has sinus bradycardia intermittently but during my evaluation he had a sinus rhythm rate of 70/min. Patient was noted to have leukocytosis with WC of 17.9 hemoglobin 12.9 electrolytes are normal however bicarb is 14 BUN is 54 creatinine 1.73. Patient had positive Hemoccult stools, negative C. difficile toxin. Patient is normally on Eliquis at home which is presently on hold, he is also normally on amiodarone for atrial fibrillation. Review of Systems Constitutional: Weakness fatigue lightheadedness dizziness Eyes: Patient reports no double vision, no visual changes. ENT: Patient reports no ear pain, No rhinorrhea, No post nasal drip, No sore th roat. Cardiovascular: No chest pain orthopnea or PND. Patient does have history of chronic atrial fibrillation/paroxysmal atrial fibrillation Respiratory: Denies shortness of breath, cough, wheezing, and hemoptysis. Gastrointestinal: As noted in HPI, chronic bright red per rectum specially when he wipes but recently seems to be worse. Genitourinary: Patient reports no dysuria, no urinary frequency, no hematuria. Musculoskeletal: History of Parkinson's disease. Psychiatric: Patient reports no changes in mood, no sleeping problems. Patient reports no changes in memory. Endocrine: Patient reports no thirst, no polyuria, no cold intolerance, no heat intolerance. Neurological: History of Parkinson disease. And history of dementia. Heme/Lymphatic: Chronic bright red blood per rectum and history of colonic polyps Skin: Patient reports no rashes or unusual lesions. Past Medical History Past Medical History: Asthma, Coronary Artery Disease (CAD), Cancer, Hypertension, Prostate Disorder, Thyroid Disorder Additional Past Medical History / Comment(s): Parkinsons, 'Kidney problems" History of Any Multi-Drug Resistant Organisms: None Reported Past Surgical History: Hernia Repair, Prostate Surgery, Tonsillectomy Additional Past Surgical History / Comment(s): cardiac angioplasty Additional Past Anesthesia/Blood Transfusion Reaction / Comment(s): "Difficulty coming off anesthesia" Past Psychological History: No Psychological Hx Reported Smoking Status: Never smoker Past Alcohol Use History: Occasional Past Drug Use History: None Reported - Past Family History Father Family Medical History: Myocardial Infarction ([place]) Medications and Allergies Home Medications Medication Instructions Recorded Confirmed Type Budesonide-Formot 160-4.5 Mcg 2 puff INHALATION RT-BID PRN 03/13/15 01/07/25 History [Symbicort 160-4.5 Mcg Inhaler] EPINEPHrine [Epipen 2-Adolfo] 0.3 mg IM ONCE PRN 01/28/17 01/07/25 History Spironolactone [Aldactone] 25 mg PO DAILY 01/28/17 01/07/25 History lisinopriL [Zestril] 10 mg PO BID 01/28/17 01/07/25 History Amiodarone [Cordarone] 200 mg PO DAILY 01/07/25 01/07/25 History Apixaban [Eliquis] 5 mg PO BID 01/07/25 01/07/25 History Carbidopa-Levodopa 25-100 mg 1.5 tab PO TID 01/07/25 01/07/25 History [Sinemet 25-100] Memantine [Namenda] 10 mg PO BID 01/07/25 01/07/25 History Venlafaxine HCl [Effexor XR] 75 mg PO DAILY 01/07/25 01/07/25 History Allergies Allergy/AdvReac Type Severity Reaction Status Date / Time iodine Allergy Rash/Hives Verified 01/07/25 19:41 shellfish derived [Shellfish] Allergy Unknown Verified 01/07/25 19:41 tetanus and diphtheria Allergy Unknown Verified 01/07/25 19:41 toxoids [tetanus & diphtheria toxoids] venom-honey bee Allergy Anaphylaxis Verified 01/07/25 19:41 [bee venom (honey bee)] Physical Exam Vitals: Vital Signs Temp Pulse Pulse Resp BP BP BP 01/08/25 10:45 71 26 H 01/08/25 10:30 70 23 01/08/25 10:15 75 22 01/08/25 10:00 75 23 01/08/25 09:45 70 22 01/08/25 09:30 67 22 01/08/25 09:15 70 22 01/08/25 09:00 72 24 119/79 01/08/25 08:45 82 19 110/79 01/08/25 08:30 69 22 130/83 01/08/25 08:15 65 20 127/84 01/08/25 08:00 97.6 F 68 16 129/79 01/08/25 07:45 69 22 137/83 01/08/25 07:30 66 22 150/84 01/08/25 07:15 68 24 143/89 01/08/25 07:00 74 12 136/84 01/08/25 06:45 72 19 147/90 01/08/25 06:30 64 19 146/96 01/08/25 06:15 63 21 129/74 01/08/25 06:00 71 22 127/80 01/08/25 05:45 70 17 138/86 01/08/25 05:30 70 20 136/77 01/08/25 05:15 64 21 125/84 01/08/25 05:00 69 20 121/76 01/08/25 04:45 61 21 117/74 01/08/25 04:30 62 20 128/81 01/08/25 04:15 74 13 99/73 01/08/25 04:13 67 67/44 01/08/25 04:12 65 99/73 01/08/25 04:10 69 01/08/25 04:00 61 21 122/72 01/08/25 03:45 63 20 105/68 01/08/25 03:30 65 22 119/71 01/08/25 03:15 62 20 117/71 01/08/25 03:00 65 20 113/76 01/08/25 02:45 60 19 108/77 01/08/25 02:30 61 20 112/66 01/08/25 02:15 58 L 18 99/60 01/08/25 02:00 59 L 22 99/60 01/08/25 01:45 58 L 21 90/59 01/08/25 01:30 56 L 19 86/56 01/08/25 01:21 98.4 F 59 L 20 01/08/25 01:15 59 L 19 91/45 01/08/25 01:00 98.4 F 64 18 102/64 01/08/25 00:46 79 24 01/08/25 00:00 60 17 82/57 01/07/25 22:30 61 17 81/56 01/07/25 21:06 47 L 17 74/50 01/07/25 21:00 53 L 17 67/51 01/07/25 20:42 52 L 17 98/75 01/07/25 19:33 55 L 17 111/69 01/07/25 19:03 97.5 F L 61 20 74/43 BP Pulse Ox 01/08/25 10:45 01/08/25 10:30 01/08/25 10:15 01/08/25 10:00 01/08/25 09:45 01/08/25 09:30 01/08/25 09:15 01/08/25 09:00 01/08/25 08:45 01/08/25 08:30 91 L 01/08/25 08:15 93 L 01/08/25 08:00 92 L 01/08/25 07:45 93 L 01/08/25 07:30 94 L 01/08/25 07:15 92 L 01/08/25 07:00 92 L 01/08/25 06:45 94 L 01/08/25 06:30 94 L 01/08/25 06:15 93 L 01/08/25 06:00 92 L 01/08/25 05:45 94 L 01/08/25 05:30 93 L 01/08/25 05:15 94 L 01/08/25 05:00 94 L 01/08/25 04:45 01/08/25 04:30 01/08/25 04:15 91 L 01/08/25 04:13 01/08/25 04:12 01/08/25 04:10 143/124 01/08/25 04:00 92 L 01/08/25 03:45 92 L 01/08/25 03:30 92 L 01/08/25 03:15 93 L 01/08/25 03:00 94 L 01/08/25 02:45 95 01/08/25 02:30 93 L 01/08/25 02:15 93 L 01/08/25 02:00 94 L 01/08/25 01:45 93 L 01/08/25 01:30 94 L 01/08/25 01:21 91 L 01/08/25 01:15 92 L 01/08/25 01:00 91 L 01/08/25 00:46 01/08/25 00:00 92 L 01/07/25 22:30 95 01/07/25 21:06 01/07/25 21:00 01/07/25 20:42 01/07/25 19:33 98 01/07/25 19:03 91 L Intake and Output 01/07/25 01/08/25 01/08/25 22:59 06:59 14:59 Intake Total 1500 375 Output Total 500 1085 230 Balance -500 415 145 Intake: IV 250 Lactated Ringers 1,000 ml 250 @ 125 mls/hr IV .Q8H TRI Rx#:[id number] Intake, IV Titration 1500 125 Amount Dextrose 5%-0.45% NaCl 1, 500 000 ml @ 100 mls/hr IV . Q10H TRI Rx#:[id number] Lactated Ringers 1,000 ml 125 @ 125 mls/hr IV .Q8H TRI Rx#:[id number] Lactated Ringers 1,000 ml 1000 @ 999 mls/hr IV .Q1H1M ONE Rx#:[id number] Output: Urine 500 835 230 Uretheral (Peñaloza) 500 Stool 250 Other: Voiding Method Indwelling Catheter Indwelling Catheter Weight 97.522 kg 99.3 kg Physical exam revealed a 79-year-old, in no distress, on room air Head: Atraumatic, normocephalic EENT: PERRLA, EOMI, nonicteric, no neck masses, no JVD, no stridor, moist mucous membranes Chest: Symmetrical chest expansion Lungs: Good breath sound bilaterally no crackles rhonchi or wheezes Cardiac: Normal S1-S2, no S3 gallop, no murmur, no bruit Abdomen: Soft nontender no megaly no rebound no guarding good bowel sounds Extremities: No clubbing edema or cyanosis, good pulses bilaterally Musculoskeletal: No deformities and no limitation range of motion Neurologic: Alert oriented x 3 no gross focal neurologic deficit Psychiatric: Normal mood flat affect and no mental status examination Skin: No rashes. Results - Laboratory Findings CBC and BMP: 01/08/25 05:40 01/08/25 05:24 PT/INR, D-dimer PT 11.3 sec (10.0-12.5) 01/07/25 19:23 INR 1.0 (<1.2) 01/07/25 19:23 Abnormal lab findings: Abnormal Labs 01/07/25 01/07/25 01/07/25 19:23 19:23 19:23 WBC 15.53 H RBC 3.79 L Hgb 11.7 L Hct 35.6 L MCHC MPV 9.1 L Immature Gran # 0.08 H Neutrophils # 12.72 H Lymphocytes # Monocytes # Eosinophils # APTT 19.7 L Chloride 108 H Carbon Dioxide 19 L BUN 53 H Creatinine 2.16 H Glucose 156 H POC Glucose (mg/dL) Calcium Phosphorus 4.8 H Magnesium 2.6 H Total Protein 5.7 L Albumin Urine Protein Urine WBC Amorphous Sediment Urine Bacteria Hyaline Casts Urine Mucus 01/07/25 01/08/25 01/08/25 21:30 00:44 05:24 WBC RBC Hgb Hct MCHC MPV Immature Gran # Neutrophils # Lymphocytes # Monocytes # Eosinophils # APTT Chloride 109 H Carbon Dioxide 14 L BUN 54 H Creatinine 1.73 H Glucose 199 H POC Glucose (mg/dL) 187 H Calcium 7.9 L Phosphorus 4.8 H Magnesium Total Protein 5.7 L Albumin 3.4 L Urine Protein 1+ H Urine WBC 6 H Amorphous Sediment Rare H Urine Bacteria Rare H Hyaline Casts 21 H Urine Mucus Rare H 01/08/25 05:40 WBC 17.96 H RBC 4.31 L Hgb 12.9 L Hct MCHC 31.7 L MPV 9.3 L Immature Gran # 0.07 H Neutrophils # 16.54 H Lymphocytes # 0.30 L Monocytes # 1.01 H Eosinophils # 0.00 L APTT Chloride Carbon Dioxide BUN Creatinine Glucose POC Glucose (mg/dL) Calcium Phosphorus Magnesium Total Protein Albumin Urine Protein Urine WBC Amorphous Sediment Urine Bacteria Hyaline Casts Urine Mucus - Diagnostic Findings Additional studies: CT abdomen and pelvis was noted, patient was found to have large volume liquid colonic stool burden upstream to the region of impacted stool in the rectosigmoid colonic area. Assessment and Plan Assessment: Impression: Symptomatic bradycardia with orthostatic hypotension on his initial presentation, sinus rhythm during my evaluation with hemodynamic stability. Chronic GI bleeding, and history of colonic polyps seems to be exacerbated by the fact that the patient is on Eliquis Acute kidney injury could be related to hypotension or related to dehydration History of paroxysmal atrial fibrillation History of Parkinson disease Recommendation: Continue hydration, and monitor electrolytes, monitor renal profile. Continue to hold Eliquis for now. Cardiology to see on consultation for his bradycardia. CT abdomen and pelvis was reviewed. Resume home meds for Parkinson's disease. Transfer patient to a cardiac floor once a bed is available GI or surgical consultation for possible colonoscopy Will continue to follow. Time with Patient: Greater than 30
--- NOTE | 2025-01-08 11:18 | P.PN ---
Subjective Progress Note Date: 01/08/25 Patient was seen and examined. Lightheadedness improved. Still with small amount of blood with watery bowel movements. CBC, BMP significant for WBC 17.96, RBC 4.31, Hg 12.9, Cl 109, bicarb 14, BUN 54, Cr 1.73, glu 199, Ca 7.9, Phos 4.8, alb 3.4. General: no distress, appears at stated age Derm: warm, dry Head: atraumatic, normocephalic, symmetric Eyes: EOMI Mouth: no lip lesion, mucus membranes moist Cardiovascular: S1 S2 reg. No murmur. Lungs: Decreased BS bilaterally, no accessory muscle use Abd: Soft. Non tender to palpation Ext: no gross muscle atrophy, no edema, no contractures Neuro: No FND Psych: AO x 3 +Peñaloza Based on my assessment of this patient, this patient meets a high complexity l evel of care. Lower GI bleed: Hg stable. Monitor Hg Q6H. Protonix 40 mg PO BID. Hold Eliquis. Surgery consulted. Sepsis secondary to stercoral colitis: Start Zosyn 3.75g IV TID. Continue LR at 125 cc/hr. Follow BCx. Surgery consulted. Orthostatic hypotension: Resolving with IV hydration. Hold Lisinopril. 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 Hold Lisinopril. AFib: Amiodarone 200 mg PO QD. Holding Eliquis. COPD: Not in acute exacerbation. Symbicort 2 INH BID. Depression: Effexor 75 mg PO QD. Parkinsons: Carbidopa Levodopa 25-100 1.5 tab PO TID. Memantine 10 mg PO BID. Resolved: Bradycardia with prolonged QT CODE STATUS: FULL CODE. DVT Prophylaxis: SCD GI Prophylaxis: Protonix PO Designated medical POA if patient is not able to make medical decisions for themselves: I have reviewed the following product marketing consultant notes: I have reviewed the results of the following tests: CBC, BMP. I have ordered the following tests: CBC Q6H. BMP in the AM. I have discussed the care of this patient with the following independent historian: I have independently interpreted the following test below: I have discussed the management of this patient with the following physician: Objective - Vital Signs Vital signs: Vital Signs Temp 97.6 F 01/08/25 08:00 Pulse 71 01/08/25 10:45 Resp 26 H 01/08/25 10:45 BP 119/79 01/08/25 09:00 Pulse Ox 91 L 01/08/25 08:30 FiO2 Intake & Output 01/07/25 01/08/25 01/08/25 18:59 06:59 18:59 Intake Total 1500 375 Output Total 1585 230 Balance -85 145 Weight 99.3 kg Intake: IV 250 Lactated Ringers 1,000 ml 250 @ 125 mls/hr IV .Q8H TRI Rx#:[id number] Intake, IV Titration 1500 125 Amount Dextrose 5%-0.45% NaCl 1, 500 000 ml @ 100 mls/hr IV . Q10H [facility] Rx#:[id number] Lactated Ringers 1,000 ml 125 @ 125 mls/hr IV .Q8H TRI Rx#:[id number] Lactated Ringers 1,000 ml 1000 @ 999 mls/hr IV .Q1H1M ONE Rx#:[id number] Output: Urine 1335 230 Uretheral (Peñaloza) 500 Stool 250 Other: Voiding Method Indwelling Catheter Indwelling Catheter - Labs CBC & Chem 7: 01/08/25 05:40 01/08/25 05:24 Labs: Abnormal Lab Results - Last 24 Hours (Table) 01/07/25 01/07/25 01/07/25 Range/Units 19:23 19:23 19:23 WBC 15.53 H (4.50-10.00) 10*3/uL RBC 3.79 L (4.40-5.60) 10*6/uL Hgb 11.7 L (13.0-17.0) g/dL Hct 35.6 L (39.6-50.0) % MCHC (32.0-37.0) g/dL MPV 9.1 L (9.5-12.2) fL Immature Gran # 0.08 H (0.00-0.04) 10*3/uL Neutrophils # 12.72 H (1.80-7.70) 10*3/uL Lymphocytes # (0.90-5.00) 10*3/uL Monocytes # (0.20-1.00) 10*3/uL Eosinophils # (0.04-0.35) 10*3/uL APTT 19.7 L (22.0-30.0) sec Chloride 108 H (98-107) mmol/L Carbon Dioxide 19 L (22-30) mmol/L BUN 53 H (9-20) mg/dL Creatinine 2.16 H (0.66-1.25) mg/dL Glucose 156 H (74-99) mg/dL POC Glucose (mg/dL) (70-110) mg/dL Calcium (8.4-10.2) mg/dL Phosphorus 4.8 H (2.5-4.5) mg/dL Magnesium 2.6 H (1.6-2.3) mg/dL Total Protein 5.7 L (6.3-8.2) g/dL Albumin (3.5-5.0) g/dL Urine Protein (Negative) Urine WBC (0-5) /hpf Amorphous Sediment (None) /hpf Urine Bacteria (None) /hpf Hyaline Casts (0-2) /lpf Urine Mucus (None) /hpf 01/07/25 01/08/25 01/08/25 Range/Units 21:30 00:44 05:24 WBC (4.50-10.00) 10*3/uL RBC (4.40-5.60) 10*6/uL Hgb (13.0-17.0) g/dL Hct (39.6-50.0) % MCHC (32.0-37.0) g/dL MPV (9.5-12.2) fL Immature Gran # (0.00-0.04) 10*3/uL Neutrophils # (1.80-7.70) 10*3/uL Lymphocytes # (0.90-5.00) 10*3/uL Monocytes # (0.20-1.00) 10*3/uL Eosinophils # (0.04-0.35) 10*3/uL APTT (22.0-30.0) sec Chloride 109 H (98-107) mmol/L Carbon Dioxide 14 L (22-30) mmol/L BUN 54 H (9-20) mg/dL Creatinine 1.73 H (0.66-1.25) mg/dL Glucose 199 H (74-99) mg/dL POC Glucose (mg/dL) 187 H (70-110) mg/dL Calcium 7.9 L (8.4-10.2) mg/dL Phosphorus 4.8 H (2.5-4.5) mg/dL Magnesium (1.6-2.3) mg/dL Total Protein 5.7 L (6.3-8.2) g/dL Albumin 3.4 L (3.5-5.0) g/dL Urine Protein 1+ H (Negative) Urine WBC 6 H (0-5) /hpf Amorphous Sediment Rare H (None) /hpf Urine Bacteria Rare H (None) /hpf Hyaline Casts 21 H (0-2) /lpf Urine Mucus Rare H (None) /hpf 01/08/25 Range/Units 05:40 WBC 17.96 H (4.50-10.00) 10*3/uL RBC 4.31 L (4.40-5.60) 10*6/uL Hgb 12.9 L (13.0-17.0) g/dL Hct (39.6-50.0) % MCHC 31.7 L (32.0-37.0) g/dL MPV 9.3 L (9.5-12.2) fL Immature Gran # 0.07 H (0.00-0.04) 10*3/uL Neutrophils # 16.54 H (1.80-7.70) 10*3/uL Lymphocytes # 0.30 L (0.90-5.00) 10*3/uL Monocytes # 1.01 H (0.20-1.00) 10*3/uL Eosinophils # 0.00 L (0.04-0.35) 10*3/uL APTT (22.0-30.0) sec Chloride (98-107) mmol/L Carbon Dioxide (22-30) mmol/L BUN (9-20) mg/dL Creatinine (0.66-1.25) mg/dL Glucose (74-99) mg/dL POC Glucose (mg/dL) (70-110) mg/dL Calcium (8.4-10.2) mg/dL Phosphorus (2.5-4.5) mg/dL Magnesium (1.6-2.3) mg/dL Total Protein (6.3-8.2) g/dL Albumin (3.5-5.0) g/dL Urine Protein (Negative) Urine WBC (0-5) /hpf Amorphous Sediment (None) /hpf Urine Bacteria (None) /hpf Hyaline Casts (0-2) /lpf Urine Mucus (None) /hpf
[2025-01-08 12:06] LABS: HCT 40.6 % (39.6-50.0); HGB 13.2 g/dL (13.0-17.0); MCH 30.5 pg (27.0-32.0); MCHC 32.5 g/dL (32.0-37.0); MCV 93.8 fL (80.0-97.0); Platelet Count 279 10*3/uL (140-440); RBC 4.33 10*6/uL (4.40-5.60); RDW 14.1 % (11.5-14.5); WBC 20.04 10*3/uL (4.50-10.00)
[2025-01-08] MEDS ORDERED: ONDANSETRON 4 MG/2 ML VIAL IVP PRN (12:49)
--- NOTE | 2025-01-08 15:17 | P.CON ---
Consult Note - . Consult date: 01/08/25 Assessment/Plan:: This is a 79-year-old male who presented to the [facility] ER for evaluation. Patient presented for for evaluation of a syncopal event that occurred while outside doing lawn work. Patient has symptoms of lightheadedness and dizziness and weakness and also complaining of abdominal pain. History of heart disease and on Eliquis. He states he has had significant rectal bleeding. He had a colonoscopy 4 years ago which was normal. CT-AP showed constipation. Review of Systems ROS Statement: Those systems with pertinent positive or pertinent negative responses have been documented in the HPI. ROS Other: All systems not noted in ROS Statement are negative. Past Medical History Past Medical History: Asthma, Coronary Artery Disease (CAD), Cancer, Hypertension, Prostate Disorder, Thyroid Disorder History of Any Multi-Drug Resistant Organisms: None Reported Past Surgical History: Hernia Repair, Prostate Surgery, Tonsillectomy Additional Past Surgical History / Comment(s): cardiac angioplasty Past Psychological History: No Psychological Hx Reported Smoking Status: Never smoker Past Alcohol Use History: Occasional Past Drug Use History: None Reported General Exam Limitations: no limitations General appearance: alert, in no apparent distress Head exam: Present: atraumatic, normocephalic, normal inspection Eye exam: Present: normal appearance, PERRL, EOMI. Absent: scleral icterus, conjunctival injection, periorbital swelling ENT exam: Present: normal exam, mucous membranes moist Neck exam: Present: normal inspection. Absent: tenderness, meningismus, lymphadenopathy Respiratory exam: Present: normal lung sounds bilaterally. Absent: respiratory distress, wheezes, rales, rhonchi, stridor Cardiovascular Exam: Present: regular rate, normal rhythm, normal heart sounds. Absent: systolic murmur, diastolic murmur, rubs, gallop, clicks GI/Abdominal exam: Present: soft, normal bowel sounds. Absent: distended, tenderness, guarding, rebound, rigid Extremities exam: Present: normal inspection, full ROM, normal capillary refill. Absent: tenderness, pedal edema, joint swelling, calf tenderness Back exam: Present: normal inspection Neurological exam: Present: alert, oriented X3, CN II-XII intact Psychiatric exam: Present: normal affect, normal mood Skin exam: Present: warm, dry, intact, normal color. Absent: rash 79 year old male with syncopal episode and GIB -Will plan for colonoscopy tomorrow. CLD and bowel prep today. NPO/midnight. Continue to Hold Darvin Roque DO [facility] [phone]
--- NOTE | 2025-01-08 17:14 | P.CRDCN ---
History of Present Illness Consult date: 01/08/25 History of present illness: HISTORY OF PRESENTING ILLNESS: Known to Dr. Demarco for cardiology 79-year-old male with history of chronic atrial fibrillation, chronic kidney disease, Parkinson disease previous history of GI bleeding from polyp. History of present presented to the hospital because of concerns of low blood pressure, generalized weakness at home. On admission to the hospital he was noted to be hypotensive along with bradycardic with heart rate in 40s. For this grey roll man was contacted by emergency department. On review of EKG and telemetry strip it appears that patient was in sinus bradycardia responsed with fluid hydration patient's heart rate increased to 60 bpm without any symptoms of hypotension or any pauses. No pacemaker or any other intervention was done at this time. He was recommended to be admitted to ICU for further management and to look for etiology for hypotension and sepsis. Home medication includes Eliquis 5 twice daily, amiodarone 200 daily, Aldactone 25 mg daily, lisinopril 10 mg twice daily .......................... ................................................................................ .................................... Pertient Vitals: Admission BP 90/60, heart rate 45 bpm, repeat 137/89, heart rate 71 bpm Pertient Labs: Hb 12, WBC 17, NT-proBNP 561, TSH 4.2 EKG: Sinus bradycardia Pertient Imaging: CT abdominal pelvis showed large impacted stool in sigmoid colon ................................... ................................................................................ ........................... REVIEW OF SYSTEMS: 14 point review of system is negative except what is mentioned above in HPI. ................................................................................ .............................................................. PHYSICAL EXAMINATION: Neck: Brisk carotid upstroke, no jugular venous distention. Lungs: Clear to auscultation. Heart: Regular pulse, systolic murmur audible Abdomen: Soft, mildly distended, hypoactive bowel sounds Extremities: No edema, intact distal pulses. Neuro: Alert, oritented, no focal deficits. Detailed neuro exam was not performed. ......... ................................................................................ ..................................................... ASSESSMENT: # Impacted stool in sigmoid colon with concerns of colitis # Sepsis # Hypotension, bradycardia likely from vagal response from colonic dilatation from impacted stool, resolved with IV hydration # Paroxysmal atrial fibrillation # History of Parkinson's disease PLAN: Eliquis has been held for possible surgery for impacted stool. When resumed I will reduce Eliquis to 2.5 mg twice daily considering age approaching 80 and creatinine of 1.73 Continue amiodarone 200 mg daily Avoid AV agustina blocking agents Obtain echocardiogram Matty Obando MD, [facility] Past Medical History Past Medical History: Asthma, Coronary Artery Disease (CAD), Cancer, Hypertension, Prostate Disorder, Thyroid Disorder Additional Past Medical History / Comment(s): Parkinsons, 'Kidney problems" History of Any Multi-Drug Resistant Organisms: None Reported Past Surgical History: Hernia Repair, Prostate Surgery, Tonsillectomy Additional Past Surgical History / Comment(s): cardiac angioplasty Additional Past Anesthesia/Blood Transfusion Reaction / Comment(s): "Difficulty coming off anesthesia" Past Psychological History: No Psychological Hx Reported Smoking Status: Never smoker Past Alcohol Use History: Occasional Past Drug Use History: None Reported - Past Family History Father Family Medical History: Myocardial Infarction (HI) Medications and Allergies Home Medications Medication Instructions Recorded Confirmed Type Budesonide-Formot 160-4.5 Mcg 2 puff INHALATION RT-BID PRN 03/13/15 01/07/25 History [Symbicort 160-4.5 Mcg Inhaler] EPINEPHrine [Epipen 2-Adolfo] 0.3 mg IM ONCE PRN 01/28/17 01/07/25 History Spironolactone [Aldactone] 25 mg PO DAILY 01/28/17 01/07/25 History lisinopriL [Zestril] 10 mg PO BID 01/28/17 01/07/25 History Amiodarone [Cordarone] 200 mg PO DAILY 01/07/25 01/07/25 History Apixaban [Eliquis] 5 mg PO BID 01/07/25 01/07/25 History Carbidopa-Levodopa 25-100 mg 1.5 tab PO TID 01/07/25 01/07/25 History [Sinemet 25-100] Memantine [Namenda] 10 mg PO BID 01/07/25 01/07/25 History Venlafaxine HCl [Effexor XR] 75 mg PO DAILY 01/07/25 01/07/25 History Allergies Allergy/AdvReac Type Severity Reaction Status Date / Time iodine Allergy Rash/Hives Verified 01/07/25 19:41 shellfish derived [Shellfish] Allergy Unknown Verified 01/07/25 19:41 tetanus and diphtheria Allergy Unknown Verified 01/07/25 19:41 toxoids [tetanus & diphtheria toxoids] venom-honey bee Allergy Anaphylaxis Verified 01/07/25 19:41 [bee venom (honey bee)] Physical Exam Vitals: Vital Signs Temp Pulse Pulse Resp BP BP BP 01/08/25 14:00 68 23 137/89 01/08/25 12:00 71 19 119/79 01/08/25 10:45 71 26 H 01/08/25 10:30 70 23 01/08/25 10:15 75 22 01/08/25 10:00 75 23 01/08/25 09:45 70 22 01/08/25 09:30 67 22 01/08/25 09:15 70 22 01/08/25 09:00 72 24 119/79 01/08/25 08:45 82 19 110/79 01/08/25 08:30 69 22 130/83 01/08/25 08:15 65 20 127/84 01/08/25 08:00 97.6 F 68 16 129/79 01/08/25 07:45 69 22 137/83 01/08/25 07:30 66 22 150/84 01/08/25 07:15 68 24 143/89 01/08/25 07:00 74 12 136/84 01/08/25 06:45 72 19 147/90 01/08/25 06:30 64 19 146/96 01/08/25 06:15 63 21 129/74 01/08/25 06:00 71 22 127/80 01/08/25 05:45 70 17 138/86 01/08/25 05:30 70 20 136/77 01/08/25 05:15 64 21 125/84 01/08/25 05:00 69 20 121/76 01/08/25 04:45 61 21 117/74 01/08/25 04:30 62 20 128/81 01/08/25 04:15 74 13 99/73 01/08/25 04:13 67 67/44 01/08/25 04:12 65 99/73 01/08/25 04:10 69 01/08/25 04:00 61 21 122/72 01/08/25 03:45 63 20 105/68 01/08/25 03:30 65 22 119/71 01/08/25 03:15 62 20 117/71 01/08/25 03:00 65 20 113/76 01/08/25 02:45 60 19 108/77 01/08/25 02:30 61 20 112/66 01/08/25 02:15 58 L 18 99/60 01/08/25 02:00 59 L 22 99/60 01/08/25 01:45 58 L 21 90/59 01/08/25 01:30 56 L 19 86/56 01/08/25 01:21 98.4 F 59 L 20 01/08/25 01:15 59 L 19 91/45 01/08/25 01:00 98.4 F 64 18 102/64 01/08/25 00:46 79 24 01/08/25 00:00 60 17 82/57 01/07/25 22:30 61 17 81/56 01/07/25 21:06 47 L 17 74/50 01/07/25 21:00 53 L 17 67/51 01/07/25 20:42 52 L 17 98/75 01/07/25 19:33 55 L 17 111/69 01/07/25 19:03 97.5 F L 61 20 74/43 BP Pulse Ox 01/08/25 14:00 90 L 01/08/25 12:00 93 L 01/08/25 10:45 01/08/25 10:30 01/08/25 10:15 01/08/25 10:00 01/08/25 09:45 01/08/25 09:30 01/08/25 09:15 01/08/25 09:00 01/08/25 08:45 01/08/25 08:30 91 L 01/08/25 08:15 93 L 01/08/25 08:00 92 L 01/08/25 07:45 93 L 01/08/25 07:30 94 L 01/08/25 07:15 92 L 01/08/25 07:00 92 L 01/08/25 06:45 94 L 01/08/25 06:30 94 L 01/08/25 06:15 93 L 01/08/25 06:00 92 L 01/08/25 05:45 94 L 01/08/25 05:30 93 L 01/08/25 05:15 94 L 01/08/25 05:00 94 L 01/08/25 04:45 01/08/25 04:30 01/08/25 04:15 91 L 01/08/25 04:13 01/08/25 04:12 01/08/25 04:10 143/124 01/08/25 04:00 92 L 01/08/25 03:45 92 L 01/08/25 03:30 92 L 01/08/25 03:15 93 L 01/08/25 03:00 94 L 01/08/25 02:45 95 01/08/25 02:30 93 L 01/08/25 02:15 93 L 01/08/25 02:00 94 L 01/08/25 01:45 93 L 01/08/25 01:30 94 L 01/08/25 01:21 91 L 01/08/25 01:15 92 L 01/08/25 01:00 91 L 01/08/25 00:46 01/08/25 00:00 92 L 01/07/25 22:30 95 01/07/25 21:06 01/07/25 21:00 01/07/25 20:42 01/07/25 19:33 98 01/07/25 19:03 91 L Intake and Output 01/08/25 01/08/25 01/08/25 06:59 14:59 22:59 Intake Total 1500 375 Output Total 1085 230 Balance 415 145 Intake: IV 250 Lactated Ringers 1,000 ml 250 @ 125 mls/hr IV .Q8H TRI Rx#:[id number] Intake, IV Titration 1500 125 Amount Dextrose 5%-0.45% NaCl 1, 500 000 ml @ 100 mls/hr IV . Q10H TRI Rx#:[id number] Lactated Ringers 1,000 ml 125 @ 125 mls/hr IV .Q8H TRI Rx#:[id number] Lactated Ringers 1,000 ml 1000 @ 999 mls/hr IV .Q1H1M ONE Rx#:[id number] Output: Urine 835 230 Stool 250 Other: Voiding Method Indwelling Catheter Indwelling Catheter Weight 99.3 kg Results 01/08/25 11:52 01/08/25 05:24 Cardiac Enzymes 01/07/25 01/07/25 01/08/25 Range/Units 19:23 19:23 05:24 AST 28 26 (17-59) U/L Troponin I <0.012 (0.000-0.034) ng/mL Coagulation 01/07/25 Range/Units 19:23 PT 11.3 (10.0-12.5) sec APTT 19.7 L (22.0-30.0) sec CBC 01/07/25 01/08/25 01/08/25 Range/Units 19: 05:40 11:52 WBC 15.53 H 17.96 H 20.04 H (4.50-10.00) 10*3/uL RBC 3.79 L 4.31 L 4.33 L (4.40-5.60) 10*6/uL Hgb 11.7 L 12.9 L 13.2 (13.0-17.0) g/dL Hct 35.6 L 40.7 40.6 (39.6-50.0) % Plt Count 267 268 279 (140-440) 10*3/uL Comprehensive Metabolic Panel 01/07/25 01/08/25 Range/Units 19:23 05:24 Sodium 138 137 (137-145) mmol/L Potassium 5.0 4.7 (3.5-5.1) mmol/L Chloride 108 H 109 H (98-107) mmol/L Carbon Dioxide 19 L 14 L (22-30) mmol/L BUN 53 H 54 H (9-20) mg/dL Creatinine 2.16 H 1.73 H (0.66-1.25) mg/dL Glucose 156 H 199 H (74-99) mg/dL Calcium 8.5 7.9 L (8.4-10.2) mg/dL AST 28 26 (17-59) U/L ALT 8 18 (4-49) U/L Alkaline Phosphatase 58 43 (38-126) U/L Total Protein 5.7 L 5.7 L (6.3-8.2) g/dL Albumin 3.5 3.4 L (3.5-5.0) g/dL Current Medications Generic Name Dose Route Start Last Admin Trade Name Freq PRN Reason Stop Dose Admin Amiodarone HCl 200 mg 01/08/25 09:00 01/08/25 08:38 Amiodarone 200 Mg Tab PO 200 mg DAILY TRI Administration Budesonide/Formoterol Fumarate 2 puff 01/08/25 07:20 Symbicort 160-4.5 Mcg Inhaler INHALATION RT-BID PRN Shortness Of Breath Carbidopa/Levodopa 1.5 each 01/08/25 09:00 01/08/25 15:43 Carbidopa-Levodopa 25-100 Mg 1 Each Tab PO 1.5 each TID TRI Administration Dopamine HCl/Dextrose 800 mg/ 250 mls @ 1.829 mls/hr 01/07/25 21:13 01/08/25 01:35 IV Solution IV 01/08/25 21:12 Not Given .Q24H ONE Protocol 1 MCG/KG/MIN Lactated Ringer's 1,000 mls @ 125 mls/hr 01/08/25 05:45 01/08/25 15:51 Lactated Ringers IV 125 mls/hr .Q8H TRI Administration Piperacillin Sod/Tazobactam 100 mls @ 25 mls/hr 01/08/25 09:00 01/08/25 15:42 Sod 3.375 gm/ Sodium Chloride IVPB 25 mls/hr Q8HR TRI Administration Protocol Memantine 10 mg 01/08/25 09:00 01/08/25 08:38 Memantine 10 Mg Tab PO 10 mg BID TRI Administration Naloxone HCl 0.2 mg 01/07/25 22:08 Naloxone 0.4 Mg/Ml 1 Ml Vial IV Q2M PRN Opioid Reversal Ondansetron HCl 4 mg 01/08/25 12:49 Ondansetron 4 Mg/2 Ml Vial IVP Q6HR PRN Nausea And Vomiting Pantoprazole Sodium 40 mg 01/08/25 07:30 01/08/25 08:38 Pantoprazole 40 Mg Tablet PO 40 mg AC-BID TRI Administration Venlafaxine HCl 75 mg 01/08/25 09:00 01/08/25 08:38 Venlafaxine Hcl Er 75 Mg Cap PO 75 mg DAILY TRI Administration Intake and Output 01/08/25 01/08/25 01/08/25 06:59 14:59 22:59 Intake Total 1500 375 Output Total 1085 230 Balance 415 145 Intake: IV 250 Lactated Ringers 1,000 ml 250 @ 125 mls/hr IV .Q8H TRI Rx#:[id number] Intake, IV Titration 1500 125 Amount Dextrose 5%-0.45% NaCl 1, 500 000 ml @ 100 mls/hr IV . Q10H [facility] Rx#:[id number] Lactated Ringers 1,000 ml 125 @ 125 mls/hr IV .Q8H [facility] Rx#:[id number] Lactated Ringers 1,000 ml 1000 @ 999 mls/hr IV .Q1H1M ONE Rx#:[id number] Output: Urine 835 230 Stool 250 Other: Voiding Method Indwelling Catheter Indwelling Catheter Weight 99.3 kg 01/08/25 11:52 01/08/25 05:24
[2025-01-08] MEDS: PEG 3350 (236 GM/BTL) + LYTES 4,000 ML BOTTLE PO ONE (17:18)
[2025-01-08 18:19] LABS: HCT 39.1 % (39.6-50.0); HGB 12.7 g/dL (13.0-17.0); MCH 30.0 pg (27.0-32.0); MCHC 32.5 g/dL (32.0-37.0); MCV 92.4 fL (80.0-97.0); Platelet Count 269 10*3/uL (140-440); RBC 4.23 10*6/uL (4.40-5.60); RDW 14.4 % (11.5-14.5); WBC 18.57 10*3/uL (4.50-10.00)
[2025-01-09 00:38] LABS: HCT 38.3 % (39.6-50.0); HGB 12.4 g/dL (13.0-17.0); MCH 30.1 pg (27.0-32.0); MCHC 32.4 g/dL (32.0-37.0); MCV 93.0 fL (80.0-97.0); Platelet Count 254 10*3/uL (140-440); RBC 4.12 10*6/uL (4.40-5.60); RDW 14.3 % (11.5-14.5); WBC 18.84 10*3/uL (4.50-10.00)
[2025-01-09 06:57] LABS: African American GFR (CKD) 49 (>60 ml/min/1.73 sqM); Anion Gap 12 mmol/L; Blood Urea Nitrogen 45 mg/dL (9-20); Calcium 7.3 mg/dL (8.4-10.2); Carbon Dioxide 20 mmol/L (22-30); Chloride 101 mmol/L (98-107); Glucose 125 mg/dL (74-99); Non-African American GFR(CKD) 42 (>60 ml/min/1.73 sqM); Potassium 3.9 mmol/L (3.5-5.1); Sodium 133 mmol/L (137-145)
[2025-01-09 07:00] LABS: Basophils # (A) 0.03 10*3/uL (0.00-0.10); Basophils % (A) 0.2 %; Eosinophils # (A) 0.01 10*3/uL (0.04-0.35); Eosinophils % (A) 0.1 %; HCT 34.5 % (39.6-50.0); HGB 11.5 g/dL (13.0-17.0); Lymphocytes # (A) 0.58 10*3/uL (0.90-5.00); Lymphocytes % (A) 3.7 %; MCH 30.6 pg (27.0-32.0); MCHC 33.3 g/dL (32.0-37.0); MCV 91.8 fL (80.0-97.0); Monocytes # (A) 1.05 10*3/uL (0.20-1.00); Monocytes % (A) 6.7 %; Neutrophils # (A) 13.92 10*3/uL (1.80-7.70); Neutrophils % (A) 88.5 %; Platelet Count 237 10*3/uL (140-440); RBC 3.76 10*6/uL (4.40-5.60); RDW 14.4 % (11.5-14.5); WBC 15.72 10*3/uL (4.50-10.00)
[2025-01-09 07:05] LABS: INR 1.2 (<1.2); Prothrombin Time 12.4 sec (10.0-12.5)
[2025-01-09] MEDS: PANTOPRAZOLE 40 MG/10 ML VIAL IVP SCH (08:23)
--- NOTE | 2025-01-09 10:33 | P.PN ---
Subjective Progress Note Date: 01/09/25 Principal diagnosis: Known to Dr. Demarco for cardiology 79-year-old male with history of chronic atrial fibrillation, chronic kidney disease, Parkinson disease previous history of GI bleeding from polyp. History of present presented to the hospital because of concerns of low blood pressure, generalized weakness at home. On admission to the hospital he was noted to be hypotensive along with bradycardic with heart rate in 40s. 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 On review of EKG and telemetry strip it appears that patient was in sinus bradycardia responsed with fluid hydration patient's heart rate increased to 60 bpm without any symptoms of hypotension or any pauses. No pacemaker or any other intervention was done at this time. He was recommended to be admitted to ICU for further management and to look for etiology for hypotension and sepsis. Home medication includes Eliquis 5 twice daily, amiodarone 200 daily, Aldactone 25 mg daily, lisinopril 10 mg twice daily Pertient Vitals: Admission BP 90/60, heart rate 45 bpm, repeat 137/89, heart rate 71 bpm Pertient Labs: Hb 12, WBC 17, NT-proBNP 561, TSH 4.2 EKG: Sinus bradycardia Pertient Imaging: CT abdominal pelvis showed large impacted stool in sigmoid colon 01/09/25: Patient seen and examined at bedside today. He reports mild lower abdominal pain. Vital signs are stable, currently on room air WBC 15.72, hemoglobin 11.5, INR 1.2, creatinine 1.54 REVIEW OF SYSTEMS: 14 point review of system is negative except what is mentioned above in HPI. PHYSICAL EXAMINATION: Neck: Brisk carotid upstroke, no jugular venous distention. Lungs: Clear to auscultation. Heart: Regular pulse, systolic murmur audible Abdomen: Soft, mildly distended, hypoactive bowel sounds Extremities: No edema, intact distal pulses. Neuro: Alert, oritented, no focal deficits. Detailed neuro exam was not performed. ASSESSMENT: # Impacted stool in sigmoid colon with concerns of colitis # Sepsis # Hypotension, bradycardia likely from vagal response from colonic dilatation from impacted stool, resolved with IV hydration # Paroxysmal atrial fibrillation # History of Parkinson's disease PLAN: Eliquis has been held for possible surgery for impacted stool. When resumed I will reduce Eliquis to 2.5 mg twice daily considering age approaching 80 and creatinine of 1.73 Continue amiodarone 200 mg daily Avoid AV agustina blocking agents Obtain echocardiogram Dictation was produced using [employer] dictation software. please excuse any grammatical, word or spelling errors. Sujata Gordillo MD PGY-2 IM I saw and evaluated the patient during the duff and critical portions of this encounter, and discussed the case in detail with the resident author of this note, I agree with the Assessment and Plan. Objective - Vital Signs Vital signs: Vital Signs Temp 97.6 F 01/09/25 04:00 Pulse 83 01/09/25 06:00 Resp 22 01/09/25 06:00 BP 132/78 01/09/25 06:00 Pulse Ox 96 01/08/25 20:00 FiO2 Intake & Output 01/08/25 01/09/25 01/09/25 18:59 06:59 18:59 Intake Total 375 4200 1500 Output Total 818 39 5889 Balance 145 4125 400 Weight 106.8 kg Intake: IV 541 575 1304 Lactated Ringers 1,000 ml 544 180 8464 @ 125 mls/hr IV .Q8H [facility] Rx#:[id number] Intake, IV Titration 125 75 Amount Lactated Ringers 1,000 ml 125 @ 125 mls/hr IV .Q8H [facility] Rx#:[id number] Piperacillin-Tazobactam 3 75 .375 gm In Sodium Chloride 0.9% 100 ml @ 25 mls/hr IVPB Q8HR [facility] Rx# :[id number] Oral 4000 Output: Urine 307 23 5921 Other: Voiding Method Indwelling Catheter Indwelling Catheter # Bowel Movements 10 - Labs CBC & Chem 7: 01/09/25 06:03 01/09/25 06:03 Labs: Abnormal Lab Results - Last 24 Hours (Table) 01/08/25 01/08/25 01/08/25 Range/Units 05:40 11:52 17:55 WBC 20.04 H 18.57 H (4.50-10.00) 10*3/uL RBC 4.33 L 4.23 L (4.40-5.60) 10*6/uL Hgb 12.7 L (13.0-17.0) g/dL Hct 39.1 L (39.6-50.0) % MPV 9.1 L 8.9 L (9.5-12.2) fL Immature Gran # (0.00-0.04) 10*3/uL Neutrophils # 16.54 H (1.80-7.70) 10*3/uL Lymphocytes # 0.30 L (0.90-5.00) 10*3/uL Monocytes # 1.01 H (0.20-1.00) 10*3/uL Eosinophils # 0.00 L (0.04-0.35) 10*3/uL INR (<1.2) Sodium (137-145) mmol/L Carbon Dioxide (22-30) mmol/L BUN (9-20) mg/dL Creatinine (0.66-1.25) mg/dL Glucose (74-99) mg/dL Calcium (8.4-10.2) mg/dL 01/09/25 01/09/25 01/09/25 Range/Units 00:20 06:03 06:03 WBC 18.84 H 15.72 H (4.50-10.00) 10*3/uL RBC 4.12 L 3.76 L (4.40-5.60) 10*6/uL Hgb 12.4 L 11.5 L (13.0-17.0) g/dL Hct 38.3 L 34.5 L (39.6-50.0) % MPV 9.3 L 9.1 L (9.5-12.2) fL Immature Gran # 0.13 H (0.00-0.04) 10*3/uL Neutrophils # (1.80-7.70) 10*3/uL Lymphocytes # (0.90-5.00) 10*3/uL Monocytes # (0.20-1.00) 10*3/uL Eosinophils # (0.04-0.35) 10*3/uL INR (<1.2) Sodium 133 L (137-145) mmol/L Carbon Dioxide 20 L (22-30) mmol/L BUN 45 H (9-20) mg/dL Creatinine 1.54 H (0.66-1.25) mg/dL Glucose 125 H (74-99) mg/dL Calcium 7.3 L (8.4-10.2) mg/dL 01/09/25 Range/Units 06:03 WBC (4.50-10.00) 10*3/uL RBC (4.40-5.60) 10*6/uL Hgb (13.0-17.0) g/dL Hct (39.6-50.0) % MPV (9.5-12.2) fL Immature Gran # (0.00-0.04) 10*3/uL Neutrophils # (1.80-7.70) 10*3/uL Lymphocytes # (0.90-5.00) 10*3/uL Monocytes # (0.20-1.00) 10*3/uL Eosinophils # (0.04-0.35) 10*3/uL INR 1.2 H (<1.2) Sodium (137-145) mmol/L Carbon Dioxide (22-30) mmol/L BUN (9-20) mg/dL Creatinine (0.66-1.25) mg/dL Glucose (74-99) mg/dL Calcium (8.4-10.2) mg/dL
--- NOTE | 2025-01-09 10:59 | CA ---
Transthoracic Echo Report Name: Forrest Cantu Age: 79 Gender: M : 1945 Exam Date: 01/09/2025 08:05 Exam Location: [place] [facility] Ht (in): 70 Wt (lb): 218 Ordering Physician: Matty Obando MD ([id number]) Attending/Referring Phys: Radiology Aide Rebecca Siddiqui RDCS Procedure CPT: Indications: atrial fibrillation Cardiac Hx: Technical Quality: Good Contrast 1: Total Dose (mL): Contrast 2: Total Dose (mL): MEASUREMENTS (Male / Female) Normal Values 2D ECHO LV Diastolic Diameter PLAX 4.9 cm 4.2 - 5.9 / 3.9 - 5.3 cm LV Systolic Diameter PLAX 3.0 cm IVS Diastolic Thickness 1.4 cm 0.6 - 1.0 / 0.6 - 0.9 cm LVPW Diastolic Thickness 1.4 cm 0.6 - 1.0 / 0.6 - 0.9 cm LV Relative Wall Thickness 0.6 RV Internal Dim ED PLAX 3.9 cm LA Systolic Diameter LX 4.3 cm 3.0 - 4.0 / 2.7 - 3.8 cm LV Diastolic Volume MOD 4C 140.3 cm??? LV Systolic Volume MOD 4C 77.1 cm??? LV Ejection Fraction MOD 4C 45.0 % LV Cardiac Index MOD 4C 2315.6 cm???/min???m??? LV Diastolic Length 4C 9.9 cm LV Systolic Length 4C 8.5 cm LV Diastolic Volume MOD 2C 126.3 cm??? LV Systolic Volume MOD 2C 68.3 cm??? LV Ejection Fraction MOD 2C 45.9 % LV Cardiac Index MOD 2C 2126.2 cm???/min???m??? LV Diastolic Length 2C 10.3 cm LV Systolic Length 2C 8.8 cm M-MODE Aortic Root Diameter MM 4.0 cm LA Systolic Diameter MM 3.0 cm LA Ao Ratio MM 0.8 DOPPLER AV Peak Velocity 197.5 cm/s AV Peak Gradient 15.6 mmHg Mitral E Point Velocity 86.1 cm/s Mitral A Point Velocity 149.4 cm/s Mitral E to A Ratio 0.6 MV Deceleration Time 255.8 ms MV E' Velocity 8.6 cm/s Mitral E to MV E' Ratio 10.0 TR Peak Velocity 247.1 cm/s TR Peak Gradient 24.4 mmHg Right Ventricular Systolic Press 29.4 mmHg FINDINGS Left Ventricle Left ventricular ejection fraction is estimated at 55-60 %. Left ventricular cavity size normal. Moderate concentric left ventricular hypertrophy. Normal left ventricular wall motion. Right Ventricle Right ventricular dilatation. Normal right ventricular size and function. Right Atrium Right atrial dilatation. No right atrial thrombus or mass seen. Left Atrium Mildly increased left atrial diameter. No left atrial thrombus or mass present. Mitral Valve Structurally normal mitral valve. No mitral stenosis, or prolapse. Trace to mild regurgitation Aortic Valve Trileaflet aortic valve. Aortic valve sclerosis. No aortic regurgitation. No aortic stenosis. Tricuspid Valve Structurally normal tricuspid valve. Mild tricuspid regurgitation. Pulmonic Valve Structurally normal pulmonic valve. No pulmonic regurgitation. Pericardium No pericardial effusion. Aorta Mild aortic dilatation at the level of the sinuses of valsalva 40 mm CONCLUSIONS 1. Normal left ventricular size and systolic function 2. Trace to mild mitral and mild tricuspid regurgitation and no evidence of pulmonary hypertension Previewed by: Dr. Rayne Almonte MD (Electronically Signed) Final Date: 09 January 2025 10:58
--- NOTE | 2025-01-09 11:43 | P.PN ---
Subjective Progress Note Date: 01/09/25 79 year old M with PMH of CKD, A-Fib, COPD, Parkinsons presents to the ED for abdominal pain and lightheadedness. Episode began after carrying a 35-pound bag of bird food approximately 30-40 feet, after which patient became "wiped out." Patient measured blood pressure at home which was 44/30. Patient reports history of gastrointestinal bleeding episodes at home, typically seeing small amounts of blood with wiping, but today's episode was different with a larger amount of blood noted. Patient has been taking prunes and Dulcolax recently for constipation, resulting in liquid stools. In the ED he underwent extensive evaluation. BP 74/43, HR 61, T 97.5F, 91% on RA. Labs significant for WBC 15.53, RBC 3.79, Hg 11.7, Hct 35.6, APTT 19.7, Cl 108, bicarb 19, BUN 53, Cr 2.16, glu 156, Phos 4.8, Mag 2.6, Trop < 0.012, CK 101, TSH 4.25. UA neg LE or nitrite. C. diff neg. Stool occult +. EKG sinus bradycardia with PVC + QT prolongation. CT AP impacted rectosigmoid colonic stool with stercocral colitis. He did have an episode of hypotension and bradycardia in the ED which results in admission to ICU. Cardiology consulted, bradycardia + hypotension likely related to vasovagal epsiode which resolved with IV hydration, Echo ordered. Started on Zosyn for stercoral colitis on 01/08. Surgery consulted, plans for C- scope on 01/10. 01/09 Patient was seen and examined. Lightheadedness improved. Still with small amount of blood with watery bowel movements. CBC, BMP significant for WBC 15.72, RBC 3.76, Hg 11.5, Hct 34.5, INR 1.2, Na 133, bicarb 20, BUN 45, Cr 1.54, glu 125, Ca 7.3. General: no distress, appears at stated age Derm: warm, dry Head: atraumatic, normocephalic, symmetric Eyes: EOMI Mouth: no lip lesion, mucus membranes moist Cardiovascular: S1 S2 reg. No murmur. Lungs: Decreased BS bilaterally, no accessory muscle use Abd: Soft. Non tender to palpation Ext: no gross muscle atrophy, no edema, no contractures Neuro: No FND Psych: AO x 3 +Peñaloza Based on my assessment of this patient, this patient meets a high complexity level of care. Lower GI bleed: Hg stable. Repeat CBC in the AM. Protonix 40 mg PO BID. Hold Eliquis. Surgery consulted, plans for C-scope tomorrow. Sepsis secondary to stercoral colitis: Continue Zosyn 3.75g IV TID (D2). Decreased LR from 125 to 50 cc/hr. Follow BCx. Surgery consulted. Orthostatic hypotension: Resolving with IV hydration. Hold Lisinopril. Echo is ordered and pending. 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 Hold Lisinopril. AFib: Amiodarone 200 mg PO QD. Holding Eliquis. COPD: Not in acute exacerbation. Symbicort 2 INH BID. Depression: Effexor 75 mg PO QD. Parkinsons: Carbidopa Levodopa 25-100 1.5 tab PO TID. Memantine 10 mg PO BID. Resolved: Bradycardia with prolonged QT CODE STATUS: FULL CODE. DVT Prophylaxis: SCD GI Prophylaxis: Protonix PO Designated medical POA if patient is not able to make medical decisions for themselves: I have reviewed the following clothing consultant notes: Cardio, Surgery I have reviewed the results of the following tests: CBC, BMP. I have ordered the following tests: CBC, BMP in the AM. I have discussed the care of this patient with the following independent historian: I have independently interpreted the following test below: I have discussed the management of this patient with the following physician: Objective - Vital Signs Vital signs: Vital Signs Temp 97.6 F 01/09/25 08:00 Pulse 92 01/09/25 10:00 Resp 20 01/09/25 10:00 BP 132/78 01/09/25 08:00 Pulse Ox 95 01/09/25 08:00 FiO2 Intake & Output 01/08/25 01/09/25 01/09/25 18:59 06:59 18:59 Intake Total 375 4200 1500 Output Total 887 68 9890 Balance 145 4125 400 Weight 106.8 kg Intake: IV 930 516 9429 Lactated Ringers 1,000 ml 760 605 9615 @ 125 mls/hr IV .Q8H TRI Rx#:[id number] Intake, IV Titration 125 75 Amount Lactated Ringers 1,000 ml 125 @ 125 mls/hr IV .Q8H TRI Rx#:[id number] Piperacillin-Tazobactam 3 75 .375 gm In Sodium Chloride 0.9% 100 ml @ 25 mls/hr IVPB Q8HR [facility] Rx# :[id number] Oral 4000 Output: Urine 080 05 1837 Other: Voiding Method Indwelling Catheter Indwelling Catheter # Bowel Movements 10 - Labs CBC & Chem 7: 01/09/25 06:03 01/09/25 06:03 Labs: Abnormal Lab Results - Last 24 Hours (Table) 01/08/25 01/08/25 01/09/25 Range/Units 11:52 17:55 00:20 WBC 20.04 H 18.57 H 18.84 H (4.50-10.00) 10*3/uL RBC 4.33 L 4.23 L 4.12 L (4.40-5.60) 10*6/uL Hgb 12.7 L 12.4 L (13.0-17.0) g/dL Hct 39.1 L 38.3 L (39.6-50.0) % MPV 9.1 L 8.9 L 9.3 L (9.5-12.2) fL Immature Gran # (0.00-0.04) 10*3/uL Neutrophils # (1.80-7.70) 10*3/uL Lymphocytes # (0.90-5.00) 10*3/uL Monocytes # (0.20-1.00) 10*3/uL Eosinophils # (0.04-0.35) 10*3/uL INR (<1.2) Sodium (137-145) mmol/L Carbon Dioxide (22-30) mmol/L BUN (9-20) mg/dL Creatinine (0.66-1.25) mg/dL Glucose (74-99) mg/dL Calcium (8.4-10.2) mg/dL 01/09/25 01/09/25 01/09/25 Range/Units 06:03 06:03 06:03 WBC 15.72 H (4.50-10.00) 10*3/uL RBC 3.76 L (4.40-5.60) 10*6/uL Hgb 11.5 L (13.0-17.0) g/dL Hct 34.5 L (39.6-50.0) % MPV 9.1 L (9.5-12.2) fL Immature Gran # 0.13 H (0.00-0.04) 10*3/uL Neutrophils # 13.92 H (1.80-7.70) 10*3/uL Lymphocytes # 0.58 L (0.90-5.00) 10*3/uL Monocytes # 1.05 H (0.20-1.00) 10*3/uL Eosinophils # 0.01 L (0.04-0.35) 10*3/uL INR 1.2 H (<1.2) Sodium 133 L (137-145) mmol/L Carbon Dioxide 20 L (22-30) mmol/L BUN 45 H (9-20) mg/dL Creatinine 1.54 H (0.66-1.25) mg/dL Glucose 125 H (74-99) mg/dL Calcium 7.3 L (8.4-10.2) mg/dL
--- NOTE | 2025-01-09 11:51 | P.PN ---
Subjective Progress Note Date: 01/09/25 This is a 79-year-old white male with history of chronic atrial fibrillation, chronic kidney disease, Parkinson disease, previous history of lower GI bleeding from polyps, patient was seen in the ER yesterday with chief complaint of syncope at home and has been complaining of lightheadedness and dizziness with some vague abdominal pain and pressure. Apparently this all started after he was carrying a 35 pound bag of bird food for about 40 feet. He felt he was wiped out, blood pressure was noted to be low, and he also noted some more blood per rectum. Recently the patient has been taking prunes and Dulcolax for constipation. And because of this he was having intermittent episodes of liquid stools. At any rate patient was seen in the ER, and he was noted to have significant bradycardia. However in spite of bradycardia, patient maintained adequate blood pressure, did not require any pressors or any inotropes. I was notified about this patient by the ER physician, and cardiology was also notified at the same time, and the recommendation was to admit the patient to the ICU for close monitoring. Found out this morning that the patient was admitted to the ICU as an overflow. Seems to be comfortable, not in any distress, patient has sinus bradycardia intermittently but during my evaluation he had a sinus rhythm rate of 70/min. Patient was noted to have leukocytosis with WC of 17.9 hemoglobin 12.9 electrolytes are normal however bicarb is 14 BUN is 54 creatinine 1.73. Patient had positive Hemoccult stools, negative C. difficile toxin. Patient is normally on Eliquis at home which is presently on hold, he is also normally on amiodarone for atrial fibrillation. The patient is seen today January 09, 2025 in follow-up on the intensive care unit. He is currently sitting up in bed. Awake and alert in no acute distress. He is maintaining good O2 saturations in the mid 90s on room air. He has been afebrile. Hemodynamically stable. Echocardiogram revealed preserved left vent ricular systolic function with an ejection fraction of 55 to 60%. White count 15.7. Hemoglobin 11.5. Platelets 237. Sodium 133. Potassium 3.9. Bicarb 20. BUN 45. Creatinine 1.54. Glucose 125. He is scheduled for a colonoscopy for his rectal bleeding. Eliquis remains on hold. No significant bradycardia overnight. No chest pain. No palpitations. Objective - Vital Signs Vital signs: Vital Signs Temp 97.6 F 01/09/25 08:00 Pulse 92 01/09/25 10:00 Resp 20 01/09/25 10:00 BP 132/78 01/09/25 08:00 Pulse Ox 95 01/09/25 08:00 FiO2 Intake & Output 01/08/25 01/09/25 01/09/25 18:59 06:59 18:59 Intake Total 375 4200 2590 Output Total 414 40 5286 Balance 145 4125 1240 Weight 106.8 kg Intake: IV 088 455 1972 Lactated Ringers 1,000 ml 718 456 0112 @ 125 mls/hr IV .Q8H [facility] Rx#:[id number] Intake, IV Titration 125 75 100 Amount Lactated Ringers 1,000 ml 125 @ 125 mls/hr IV .Q8H [facility] Rx#:[id number] Piperacillin-Tazobactam 3 75 100 .375 gm In Sodium Chloride 0.9% 100 ml @ 25 mls/hr IVPB Q8HR [facility] Rx# :[id number] Oral 4000 490 Output: Urine 240 96 5687 Other: Voiding Method Indwelling Catheter Indwelling Catheter Indwelling Catheter # Bowel Movements 10 - Exam GENERAL EXAM: Alert, pleasant 79-year-old male, on room air, comfortable in no apparent distress. HEAD: Normocephalic. EYES: Normal reaction of pupils, equal size. NOSE: Clear with pink turbinates. THROAT: No erythema or exudates. NECK: No masses, no JVD. CHEST: No chest wall deformity. LUNGS: Equal air entry with no crackles, wheeze, rhonchi or dullness. CVS: S1 and S2 normal with no audible murmur, regular rhythm. ABDOMEN: No hepatosplenomegaly, normal bowel sounds, no guarding or rigidity. SPINE: No scoliosis or deformity SKIN: No rashes CENTRAL NERVOUS SYSTEM: No focal deficits, tone is normal in all 4 extremities. EXTREMITIES: There is no peripheral edema. No clubbing, no cyanosis. Peripheral pulses are intact. - Labs CBC & Chem 7: 01/09/25 06:03 01/09/25 06:03 Labs: Abnormal Lab Results - Last 24 Hours (Table) 01/08/25 01/08/25 01/09/25 Range/Units 11:52 17:55 00:20 WBC 20.04 H 18.57 H 18.84 H (4.50-10.00) 10*3/uL RBC 4.33 L 4.23 L 4.12 L (4.40-5.60) 10*6/uL Hgb 12.7 L 12.4 L (13.0-17.0) g/dL Hct 39.1 L 38.3 L (39.6-50.0) % MPV 9.1 L 8.9 L 9.3 L (9.5-12.2) fL Immature Gran # (0.00-0.04) 10*3/uL Neutrophils # (1.80-7.70) 10*3/uL Lymphocytes # (0.90-5.00) 10*3/uL Monocytes # (0.20-1.00) 10*3/uL Eosinophils # (0.04-0.35) 10*3/uL INR (<1.2) Sodium (137-145) mmol/L Carbon Dioxide (22-30) mmol/L BUN (9-20) mg/dL Creatinine (0.66-1.25) mg/dL Glucose (74-99) mg/dL Calcium (8.4-10.2) mg/dL 01/09/25 01/09/25 01/09/25 Range/Units 06:03 06:03 06:03 WBC 15.72 H (4.50-10.00) 10*3/uL RBC 3.76 L (4.40-5.60) 10*6/uL Hgb 11.5 L (13.0-17.0) g/dL Hct 34.5 L (39.6-50.0) % MPV 9.1 L (9.5-12.2) fL Immature Gran # 0.13 H (0.00-0.04) 10*3/uL Neutrophils # 13.92 H (1.80-7.70) 10*3/uL Lymphocytes # 0.58 L (0.90-5.00) 10*3/uL Monocytes # 1.05 H (0.20-1.00) 10*3/uL Eosinophils # 0.01 L (0.04-0.35) 10*3/uL INR 1.2 H (<1.2) Sodium 133 L (137-145) mmol/L Carbon Dioxide 20 L (22-30) mmol/L BUN 45 H (9-20) mg/dL Creatinine 1.54 H (0.66-1.25) mg/dL Glucose 125 H (74-99) mg/dL Calcium 7.3 L (8.4-10.2) mg/dL Assessment and Plan Assessment: Symptomatic bradycardia with orthostatic hypotension on his initial presentation, recovered Chronic GI bleeding, and history of colonic polyps seems to be exacerbated by the fact that the patient is on Eliquis Acute kidney injury could be related to hypotension or related to dehydration History of paroxysmal atrial fibrillation History of Parkinson disease Plan: The patient was seen and evaluated Echocardiogram, labs and medications reviewed Plan is for colonoscopy per surgical services Eliquis remains on hold Remains on Protonix No further bradycardia or near syncope Stable from the critical care standpoint He remains a 3 S. overflow We will continue to follow I have personally seen and examined the patient, performed the documentation and the assessment and plan as written. Number of minutes spent on the visit: 10 Dictation was produced using [email or web address] dictation software. Please excuse any grammatical, word or spelling errors.
--- NOTE | 2025-01-09 15:40 | P.PN ---
Subjective Progress Note Date: 01/09/25 Patient seen and examined at bedside. No acute events. Did undergo colonoscopy prep yesterday. hemoglobin stable Objective - Vital Signs Vital signs: Vital Signs Temp 97.9 F 01/09/25 12:00 Pulse 78 01/09/25 14:00 Resp 15 01/09/25 14:00 BP 129/76 01/09/25 14:00 Pulse Ox 99 01/09/25 14:00 FiO2 Intake & Output 01/08/25 01/09/25 01/09/25 18:59 06:59 18:59 Intake Total 375 4200 2590 Output Total 805 19 3890 Balance 145 4125 1240 Weight 106.8 kg Intake: IV 121 632 8909 Lactated Ringers 1,000 ml 795 781 7955 @ 125 mls/hr IV .Q8H [facility] Rx#:[id number] Intake, IV Titration 125 75 100 Amount Lactated Ringers 1,000 ml 125 @ 125 mls/hr IV .Q8H [facility] Rx#:[id number] Piperacillin-Tazobactam 3 75 100 .375 gm In Sodium Chloride 0.9% 100 ml @ 25 mls/hr IVPB Q8HR [facility] Rx# :[id number] Oral 4000 490 Output: Urine 243 15 5160 Other: Voiding Method Indwelling Catheter Indwelling Catheter Indwelling Catheter # Bowel Movements 10 - Constitutional General appearance: Present: cooperative - Gastrointestinal Gastrointestinal Comment(s): Soft, nontender - Labs CBC & Chem 7: 01/09/25 06:03 01/09/25 06:03 Labs: Abnormal Lab Results - Last 24 Hours (Table) 01/08/25 01/09/25 01/09/25 Range/Units 17:55 00:20 06:03 WBC 18.57 H 18.84 H 15.72 H (4.50-10.00) 10*3/uL RBC 4.23 L 4.12 L 3.76 L (4.40-5.60) 10*6/uL Hgb 12.7 L 12.4 L 11.5 L (13.0-17.0) g/dL Hct 39.1 L 38.3 L 34.5 L (39.6-50.0) % MPV 8.9 L 9.3 L 9.1 L (9.5-12.2) fL Immature Gran # 0.13 H (0.00-0.04) 10*3/uL Neutrophils # 13.92 H (1.80-7.70) 10*3/uL Lymphocytes # 0.58 L (0.90-5.00) 10*3/uL Monocytes # 1.05 H (0.20-1.00) 10*3/uL Eosinophils # 0.01 L (0.04-0.35) 10*3/uL INR (<1.2) Sodium (137-145) mmol/L Carbon Dioxide (22-30) mmol/L BUN (9-20) mg/dL Creatinine (0.66-1.25) mg/dL Glucose (74-99) mg/dL Calcium (8.4-10.2) mg/dL 01/09/25 01/09/25 Range/Units 06:03 06:03 WBC (4.50-10.00) 10*3/uL RBC (4.40-5.60) 10*6/uL Hgb (13.0-17.0) g/dL Hct (39.6-50.0) % MPV (9.5-12.2) fL Immature Gran # (0.00-0.04) 10*3/uL Neutrophils # (1.80-7.70) 10*3/uL Lymphocytes # (0.90-5.00) 10*3/uL Monocytes # (0.20-1.00) 10*3/uL Eosinophils # (0.04-0.35) 10*3/uL INR 1.2 H (<1.2) Sodium 133 L (137-145) mmol/L Carbon Dioxide 20 L (22-30) mmol/L BUN 45 H (9-20) mg/dL Creatinine 1.54 H (0.66-1.25) mg/dL Glucose 125 H (74-99) mg/dL Calcium 7.3 L (8.4-10.2) mg/dL Microbiology - Last 24 Hours (Table) 01/07/25 21:45 Blood Culture - Preliminary Blood Assessment and Plan Plan: 79-year-old male with concern for GI bleed. Plan was initially for colonoscopy today and patient did undergo colonoscopy prep, however endoscopy suite in the hospital is shut down for maintenance. Plan will be for clear liquid diet today with MiraLAX tonight with plan for inpatient colonoscopy tomorrow. This was discussed with the patient. N.p.o. after midnight.
[2025-01-10 06:24] LABS: HCT 31.8 % (39.6-50.0); HGB 10.6 g/dL (13.0-17.0); MCH 30.1 pg (27.0-32.0); MCHC 33.3 g/dL (32.0-37.0); MCV 90.3 fL (80.0-97.0); Platelet Count 214 10*3/uL (140-440); RBC 3.52 10*6/uL (4.40-5.60); RDW 14.4 % (11.5-14.5); WBC 12.51 10*3/uL (4.50-10.00)
[2025-01-10 06:38] LABS: African American GFR (CKD) 54 (>60 ml/min/1.73 sqM); Anion Gap 8 mmol/L; Blood Urea Nitrogen 34 mg/dL (9-20); Calcium 7.7 mg/dL (8.4-10.2); Carbon Dioxide 22 mmol/L (22-30); Chloride 103 mmol/L (98-107); Glucose 107 mg/dL (74-99); Non-African American GFR(CKD) 47 (>60 ml/min/1.73 sqM); Potassium 3.4 mmol/L (3.5-5.1); Sodium 133 mmol/L (137-145)
[2025-01-10] MEDS: POTASSIUM CHLORIDE ER 20 MEQ TAB.ER PO STA (06:59)
--- NOTE | 2025-01-10 09:58 | P.PN ---
Subjective Progress Note Date: 01/10/25 Principal diagnosis: Known to Dr. Demarco for cardiology 79-year-old male with history of chronic atrial fibrillation, chronic kidney disease, Parkinson disease previous history of GI bleeding from polyp. History of present presented to the hospital because of concerns of low blood pressure, generalized weakness at home. On admission to the hospital he was noted to be hypotensive along with bradycardic with heart rate in 40s. For this medical reception specialist was contacted by emergency department. On review of EKG and telemetry strip it appears that patient was in sinus bradycardia responsed with fluid hydration patient's heart rate increased to 60 bpm without any symptoms of hypotension or any pauses. No pacemaker or any other intervention was done at this time. He was recommended to be admitted to ICU for further management and to look for etiology for hypotension and sepsis. Home medication includes Eliquis 5 twice daily, amiodarone 200 daily, Aldactone 25 mg daily, lisinopril 10 mg twice daily Pertient Vitals: Admission BP 90/60, heart rate 45 bpm, repeat 137/89, heart rate 71 bpm Pertient Labs: Hb 12, WBC 17, NT-proBNP 561, TSH 4.2 EKG: Sinus bradycardia Pertient Imaging: CT abdominal pelvis showed large impacted stool in sigmoid colon 01/09/25: Patient seen and examined at bedside today. He reports mild lower abdominal pain. Vital signs are stable, currently on room air WBC 15.72, hemoglobin 11.5, INR 1.2, creatinine 1.54 01/10/25: Patient evaluated at bedside today. He denies any new complaints. He is on 2L oxygen via nasal cannula. WBC 12.51, Hb 10.6, K 3.4, Na 133, Creatinine 1.42 Echocardiogram shows EF 55-60%, normal left ventricular size and systolic function, trace to mild MR and TR with no evidence of pulmonary hypertension Patient is scheduled for a colonoscopy today REVIEW OF SYSTEMS: 14 point review of system is negative except what is mentioned above in HPI. PHYSICAL EXAMINATION: Neck: Brisk carotid upstroke, no jugular venous distention. Lungs: Clear to auscultation. Heart: Regular pulse, systolic murmur audible Abdomen: Soft, mildly distended, hypoactive bowel sounds Extremities: No edema, intact distal pulses. Neuro: Alert, oritented, no focal deficits. Detailed neuro exam was not performed. ASSESSMENT: # Impacted stool in sigmoid colon with concerns of colitis # Sepsis # Hypotension, bradycardia likely from vagal response from colonic dilatation from impacted stool, resolved with IV hydration # Paroxysmal atrial fibrillation # History of Parkinson's disease PLAN: Eliquis has been held for possible surgery for impacted stool. When resumed I will reduce Eliquis to 2.5 mg twice daily considering age approaching 80 and creatinine of 1.73 Continue amiodarone 200 mg daily Avoid AV agsutina blocking agents Dictation was produced using [employer] dictation software. please excuse any grammatical, word or spelling errors. Sujata Gordillo MD PGY-2 IM I saw and evaluated the patient during the duff and critical portions of this encounter, and discussed the case in detail with the resident author of this note, I agree with the Assessment and Plan. Objective - Vital Signs Vital signs: Vital Signs Temp 97.7 F 01/10/25 08:00 Pulse 74 01/10/25 08:00 Resp 14 01/10/25 08:00 BP 134/84 01/10/25 08:00 Pulse Ox 96 01/10/25 08:00 FiO2 Intake & Output 01/09/25 01/10/25 01/10/25 18:59 06:59 18:59 Intake Total 3705 500 500 Output Total 2450 1150 1550 Balance 1255 -650 -1050 Intake: IV 2625 400 500 Lactated Ringers 1,000 ml 2625 400 400 @ 50 mls/hr IV .Q20H TRI Rx#:[id number] Piperacillin-Tazobactam 3 100 .375 gm In Sodium Chloride 0.9% 100 ml @ 25 mls/hr IVPB Q8HR TRI Rx# :[id number] Intake, IV Titration 100 100 Amount Piperacillin-Tazobactam 3 100 100 .375 gm In Sodium Chloride 0.9% 100 ml @ 25 mls/hr IVPB Q8HR TRI Rx# :[id number] Oral 980 Output: Urine 2450 1150 1550 Other: Voiding Method Indwelling Catheter Indwelling Catheter # Bowel Movements 10 3 - Labs CBC & Chem 7: 01/10/25 05:34 01/10/25 05:34 Labs: Abnormal Lab Results - Last 24 Hours (Table) 01/09/25 01/10/25 01/10/25 Range/Units 06:03 05:34 05:34 WBC 12.51 H (4.50-10.00) 10*3/uL RBC 3.52 L (4.40-5.60) 10*6/uL Hgb 10.6 L (13.0-17.0) g/dL Hct 31.8 L (39.6-50.0) % Neutrophils # 13.92 H (1.80-7.70) 10*3/uL Lymphocytes # 0.58 L (0.90-5.00) 10*3/uL Monocytes # 1.05 H (0.20-1.00) 10*3/uL Eosinophils # 0.01 L (0.04-0.35) 10*3/uL Sodium 133 L (137-145) mmol/L Potassium 3.4 L (3.5-5.1) mmol/L BUN 34 H (9-20) mg/dL Creatinine 1.42 H (0.66-1.25) mg/dL Glucose 107 H (74-99) mg/dL Calcium 7.7 L (8.4-10.2) mg/dL Microbiology - Last 24 Hours (Table) 01/07/25 21:45 Blood Culture - Preliminary Blood
--- NOTE | 2025-01-10 12:10 | P.PN ---
Subjective Progress Note Date: 01/10/25 This is a 79-year-old white male with history of chronic atrial fibrillation, chronic kidney disease, Parkinson disease, previous history of lower GI bleeding from polyps, patient was seen in the ER yesterday with chief complaint of syncope at home and has been complaining of lightheadedness and dizziness with some vague abdominal pain and pressure. Apparently this all started after he was carrying a 35 pound bag of bird food for about 40 feet. He felt he was wiped out, blood pressure was noted to be low, and he also noted some more blood per rectum. Recently the patient has been taking prunes and Dulcolax for constipation. And because of this he was having intermittent episodes of liquid stools. At any rate patient was seen in the ER, and he was noted to have significant bradycardia. However in spite of bradycardia, patient maintained adequate blood pressure, did not require any pressors or any inotropes. I was notified about this patient by the ER physician, and cardiology was also notified at the same time, and the recommendation was to admit the patient to the ICU for close monitoring. Found out this morning that the patient was admitted to the ICU as an overflow. Seems to be comfortable, not in any distress, patient has sinus bradycardia intermittently but during my evaluation he had a sinus rhythm rate of 70/min. Patient was noted to have leukocytosis with WC of 17.9 hemoglobin 12.9 electrolytes are normal however bicarb is 14 BUN is 54 creatinine 1.73. Patient had positive Hemoccult stools, negative C. difficile toxin. Patient is normally on Eliquis at home which is presently on hold, he is also normally on amiodarone for atrial fibrillation. The patient is seen today January 09, 2025 in follow-up on the intensive care unit. He is currently sitting up in bed. Awake and alert in no acute distress. He is maintaining good O2 saturations in the mid 90s on room air. He has been afebrile. Hemodynamically stable. Echocardiogram revealed preserved left vent ricular systolic function with an ejection fraction of 55 to 60%. White count 15.7. Hemoglobin 11.5. Platelets 237. Sodium 133. Potassium 3.9. Bicarb 20. BUN 45. Creatinine 1.54. Glucose 125. He is scheduled for a colonoscopy for his rectal bleeding. Eliquis remains on hold. No significant bradycardia overnight. No chest pain. No palpitations. The patient is seen today January 10, 2025 in follow-up in the intensive care unit. He is a 3 S. overflow patient. He is currently sitting up in a chair at the bedside. Awake and alert in no acute distress. Maintaining good O2 saturations in the 90s on 2 L/min per nasal cannula. He has lactated Ringer's at 50 mL/h. He is scheduled for colonoscopy today. He remains on Symbicort. Continued on antibiotics in the form of Zosyn. Remains on Protonix. White count 12.5. Hemoglobin 10.6. Platelets 214. Sodium 133. Potassium 3.4. Bicarb 22. BUN 34. Creatinine 1.42. Glucose 107. Objective - Vital Signs Vital signs: Vital Signs Temp 97.7 F 01/10/25 08:00 Pulse 74 01/10/25 08:00 Resp 14 01/10/25 08:00 BP 134/84 01/10/25 08:00 Pulse Ox 96 01/10/25 08:00 FiO2 Intake & Output 01/09/25 01/10/25 01/10/25 18:59 06:59 18:59 Intake Total 3705 500 500 Output Total 2450 1150 1550 Balance 1255 -650 -1050 Intake: IV 2625 400 500 Lactated Ringers 1,000 ml 2625 400 400 @ 50 mls/hr IV .Q20H TRI Rx#:[id number] Piperacillin-Tazobactam 3 100 .375 gm In Sodium Chloride 0.9% 100 ml @ 25 mls/hr IVPB Q8HR TRI Rx# :[id number] Intake, IV Titration 100 100 Amount Piperacillin-Tazobactam 3 100 100 .375 gm In Sodium Chloride 0.9% 100 ml @ 25 mls/hr IVPB Q8HR TRI Rx# :[id number] Oral 980 Output: Urine 2450 1150 1550 Other: Voiding Method Indwelling Catheter Indwelling Catheter Indwelling Catheter # Bowel Movements 10 3 2 - Exam GENERAL EXAM: Alert, 79-year-old male, on room air, sitting up in a chair, comfortable in no apparent distress. HEAD: Normocephalic. EYES: Normal reaction of pupils, equal size. NOSE: Clear with pink turbinates. THROAT: No erythema or exudates. NECK: No masses, no JVD. CHEST: No chest wall deformity. LUNGS: Equal air entry with no crackles, wheeze, rhonchi or dullness. CVS: S1 and S2 normal with no audible murmur, regular rhythm. ABDOMEN: No hepatosplenomegaly, normal bowel sounds, no guarding or rigidity. SPINE: No scoliosis or deformity SKIN: No rashes CENTRAL NERVOUS SYSTEM: No focal deficits, tone is normal in all 4 extremities. EXTREMITIES: There is no peripheral edema. No clubbing, no cyanosis. Periphe ral pulses are intact. - Labs CBC & Chem 7: 01/10/25 05:34 01/10/25 05:34 Labs: Abnormal Lab Results - Last 24 Hours (Table) 01/10/25 01/10/25 Range/Units 05:34 05:34 WBC 12.51 H (4.50-10.00) 10*3/uL RBC 3.52 L (4.40-5.60) 10*6/uL Hgb 10.6 L (13.0-17.0) g/dL Hct 31.8 L (39.6-50.0) % Sodium 133 L (137-145) mmol/L Potassium 3.4 L (3.5-5.1) mmol/L BUN 34 H (9-20) mg/dL Creatinine 1.42 H (0.66-1.25) mg/dL Glucose 107 H (74-99) mg/dL Calcium 7.7 L (8.4-10.2) mg/dL Microbiology - Last 24 Hours (Table) 01/07/25 21:45 Blood Culture - Preliminary Blood Assessment and Plan Assessment: Symptomatic bradycardia with orthostatic hypotension on his initial presentation, recovered Chronic GI bleeding, and history of colonic polyps seems to be exacerbated by the fact that the patient is on Eliquis Acute kidney injury could be related to hypotension or related to dehydration History of paroxysmal atrial fibrillation History of Parkinson disease Plan: The patient was seen and evaluated Labs and medications reviewed Plan is for colonoscopy today Eliquis remains on hold Remains on Protonix No further bradycardia or near syncope He remains a 3 S. overflow I have personally seen and examined the patient, performed the documentation and the assessment and plan as written. Number of minutes spent on the visit: 10 Dictation was produced using [employer] software. Please excuse any grammatical, word or spelling errors.
[2025-01-10] MEDS: IV FLUID CONTINUATION 1,000 ML IV ONE (16:41)
--- NOTE | 2025-01-10 16:59 | P.OP ---
Date of Procedure: 01/10/25 Preoperative Diagnosis: gi bleed Postoperative Diagnosis: suspected ischemic colitis vs malignancy Procedure(s) Performed: Aborted colonoscopy, sigmoidoscopy with biopsy of sigmoid and rectum Surgeon: Christ Yañez Pathology: other (Rectum) Condition: stable Disposition: PACU Indications for Procedure: 79-year-old male with GI bleed Operative Findings: Very friable rectum and sigmoid colon with possible malignancy Description of Procedure: Patient was brought to the endoscopy suite where a timeout was performed and everyone agreed with the information were recited the patient was placed in left lateral decubitus position once the patient was anesthetized and adult size a long the scope was then used to traverse the anus rectum and sigmoid colon where encountering a large volume of stool of which I cannot progress any further while in the sigmoid colon I saw a large area of friable mucosa as well as in the rectum multiple biopsies were taken and the scope was then aborted the patient was then transferred back to ICU in stable condition
[2025-01-11 07:07] LABS: Basophils # (A) 0.03 10*3/uL (0.00-0.10); Basophils % (A) 0.2 %; Eosinophils # (A) 0.16 10*3/uL (0.04-0.35); Eosinophils % (A) 1.2 %; HCT 33.5 % (39.6-50.0); HGB 10.7 g/dL (13.0-17.0); Lymphocytes # (A) 0.83 10*3/uL (0.90-5.00); Lymphocytes % (A) 6.5 %; MCH 29.4 pg (27.0-32.0); MCHC 31.9 g/dL (32.0-37.0); MCV 92.0 fL (80.0-97.0); Monocytes # (A) 0.89 10*3/uL (0.20-1.00); Monocytes % (A) 6.9 %; Neutrophils # (A) 10.78 10*3/uL (1.80-7.70); Neutrophils % (A) 84.2 %; Platelet Count 215 10*3/uL (140-440); RBC 3.64 10*6/uL (4.40-5.60); RDW 14.5 % (11.5-14.5); WBC 12.82 10*3/uL (4.50-10.00)
[2025-01-11 07:26] LABS: African American GFR (CKD) 60 (>60 ml/min/1.73 sqM); Anion Gap 9 mmol/L; Blood Urea Nitrogen 31 mg/dL (9-20); Calcium 8.0 mg/dL (8.4-10.2); Carbon Dioxide 21 mmol/L (22-30); Chloride 105 mmol/L (98-107); Glucose 76 mg/dL (74-99); Non-African American GFR(CKD) 52 (>60 ml/min/1.73 sqM); Potassium 3.7 mmol/L (3.5-5.1); Sodium 135 mmol/L (137-145)
--- NOTE | 2025-01-11 10:20 | P.PN ---
Subjective Progress Note Date: 01/11/25 Principal diagnosis: Known to Dr. Demarco for cardiology 79-year-old male with history of chronic atrial fibrillation, chronic kidney disease, Parkinson disease previous history of GI bleeding from polyp. History of present presented to the hospital because of concerns of low blood pressure, generalized weakness at home. On admission to the hospital he was noted to be hypotensive along with bradycardic with heart rate in 40s. For this chief librarian circulation department was contacted by emergency department. On review of EKG and telemetry strip it appears that patient was in sinus bradycardia responsed with fluid hydration patient's heart rate increased to 60 bpm without any symptoms of hypotension or any pauses. No pacemaker or any other intervention was done at this time. He was recommended to be admitted to ICU for further management and to look for etiology for hypotension and sepsis. Home medication includes Eliquis 5 twice daily, amiodarone 200 daily, Aldactone 25 mg daily, lisinopril 10 mg twice daily Pertient Vitals: Admission BP 90/60, heart rate 45 bpm, repeat 137/89, heart rate 71 bpm Pertient Labs: Hb 12, WBC 17, NT-proBNP 561, TSH 4.2 EKG: Sinus bradycardia Pertient Imaging: CT abdominal pelvis showed large impacted stool in sigmoid colon 01/09/25: Patient seen and examined at bedside today. He reports mild lower abdominal pain. Vital signs are stable, currently on room air WBC 15.72, hemoglobin 11.5, INR 1.2, creatinine 1.54 01/10/25: Patient evaluated at bedside today. He denies any new complaints. He is on 2L oxygen via nasal cannula. WBC 12.51, Hb 10.6, K 3.4, Na 133, Creatinine 1.42 Echocardiogram shows EF 55-60%, normal left ventricular size and systolic function, trace to mild MR and TR with no evidence of pulmonary hypertension Patient is scheduled for a colonoscopy today 01/11/25:Patient seen and examined at bedside today. He denies any new complaints. Yesterday he underwent Colonoscopy with sigmoidoscopy with biopsy, but the procedure was aborted due to large area of friable mucosa. Pulse 61 bpm, BP 136/81, currently on 2 L of oxygen nasal cannula WBC 12.82, hemoglobin 10.7, sodium 135, creatinine 1.31 REVIEW OF SYSTEMS: 14 point review of system is negative except what is mentioned above in HPI. PHYSICAL EXAMINATION: Neck: Brisk carotid upstroke, no jugular venous distention. Lungs: Clear to auscultation. Heart: Regular pulse, systolic murmur audible Abdomen: Soft, mildly distended, hypoactive bowel sounds Extremities: No edema, intact distal pulses. Neuro: Alert, oritented, no focal deficits. Detailed neuro exam was not performed. ASSESSMENT: # Impacted stool in sigmoid colon with concerns of colitis # Sepsis # Hypotension, bradycardia likely from vagal response from colonic dilatation from impacted stool, resolved with IV hydration # Paroxysmal atrial fibrillation # History of Parkinson's disease PLAN: Eliquis has been held for possible surgery for impacted stool. When resumed I will reduce Eliquis to 2.5 mg twice daily considering age approaching 80 and creatinine of 1.73 Continue amiodarone 200 mg daily Avoid AV agustina blocking agents Patient can be transferred out of ICU We will follow on an as needed basis Dictation was produced using [employer] dictation software. please excuse any grammatical, word or spelling errors. Sujata Gordillo MD PGY-2 IM I saw and evaluated the patient during the duff and critical portions of this encounter, and discussed the case in detail with the resident author of this note, I agree with the Assessment and Plan. Objective - Vital Signs Vital signs: Vital Signs Temp 97.7 F 01/11/25 08:00 Pulse 67 01/11/25 08:00 Resp 18 01/11/25 08:00 BP 136/81 01/11/25 08:00 Pulse Ox 98 01/11/25 08:00 FiO2 Intake & Output 01/10/25 01/11/25 01/11/25 18:59 06:59 18:59 Intake Total 1100 Output Total 2350 1201 Balance -1250 -1201 Intake: IV 1100 Lactated Ringers 1,000 ml 800 @ 75 mls/hr IV .[id number] TRI Rx#:[id number] Piperacillin-Tazobactam 3 200 .375 gm In Sodium Chloride 0.9% 100 ml @ 25 mls/hr IVPB Q8HR TRI Rx# :[id number] Output: Urine 2350 1200 Stool 1 Other: Voiding Method Indwelling Catheter Indwelling Catheter # Bowel Movements 2 1 - Labs CBC & Chem 7: 01/11/25 06:16 01/11/25 06:16 Labs: Abnormal Lab Results - Last 24 Hours (Table) 01/11/25 01/11/25 Range/Units 06:16 06:16 WBC 12.82 H (4.50-10.00) 10*3/uL RBC 3.64 L (4.40-5.60) 10*6/uL Hgb 10.7 L (13.0-17.0) g/dL Hct 33.5 L (39.6-50.0) % MCHC 31.9 L (32.0-37.0) g/dL MPV 9.4 L (9.5-12.2) fL Immature Gran # 0.13 H (0.00-0.04) 10*3/uL Neutrophils # 10.78 H (1.80-7.70) 10*3/uL Lymphocytes # 0.83 L (0.90-5.00) 10*3/uL Sodium 135 L (137-145) mmol/L Carbon Dioxide 21 L (22-30) mmol/L BUN 31 H (9-20) mg/dL Creatinine 1.31 H (0.66-1.25) mg/dL Calcium 8.0 L (8.4-10.2) mg/dL Microbiology - Last 24 Hours (Table) 01/07/25 21:45 Blood Culture - Preliminary Blood
--- NOTE | 2025-01-11 11:22 | P.PN ---
Subjective Progress Note Date: 01/11/25 This is a 79-year-old white male with history of chronic atrial fibrillation, chronic kidney disease, Parkinson disease, previous history of lower GI bleeding from polyps, patient was seen in the ER yesterday with chief complaint of syncope at home and has been complaining of lightheadedness and dizziness with some vague abdominal pain and pressure. Apparently this all started after he was carrying a 35 pound bag of bird food for about 40 feet. He felt he was wiped out, blood pressure was noted to be low, and he also noted some more blood per rectum. Recently the patient has been taking prunes and Dulcolax for constipation. And because of this he was having intermittent episodes of liquid stools. At any rate patient was seen in the ER, and he was noted to have significant bradycardia. However in spite of bradycardia, patient maintained adequate blood pressure, did not require any pressors or any inotropes. I was notified about this patient by the ER physician, and cardiology was also notified at the same time, and the recommendation was to admit the patient to the ICU for close monitoring. Found out this morning that the patient was admitted to the ICU as an overflow. Seems to be comfortable, not in any distress, patient has sinus bradycardia intermittently but during my evaluation he had a sinus rhythm rate of 70/min. Patient was noted to have leukocytosis with WC of 17.9 hemoglobin 12.9 electrolytes are normal however bicarb is 14 BUN is 54 creatinine 1.73. Patient had positive Hemoccult stools, negative C. difficile toxin. Patient is normally on Eliquis at home which is presently on hold, he is also normally on amiodarone for atrial fibrillation. The patient is seen today January 09, 2025 in follow-up on the intensive care unit. He is currently sitting up in bed. Awake and alert in no acute distress. He is maintaining good O2 saturations in the mid 90s on room air. He has been afebrile. Hemodynamically stable. Echocardiogram revealed preserved left vent ricular systolic function with an ejection fraction of 55 to 60%. White count 15.7. Hemoglobin 11.5. Platelets 237. Sodium 133. Potassium 3.9. Bicarb 20. BUN 45. Creatinine 1.54. Glucose 125. He is scheduled for a colonoscopy for his rectal bleeding. Eliquis remains on hold. No significant bradycardia overnight. No chest pain. No palpitations. The patient is seen today January 10, 2025 in follow-up in the intensive care unit. He is a 3 S. overflow patient. He is currently sitting up in a chair at the bedside. Awake and alert in no acute distress. Maintaining good O2 saturations in the 90s on 2 L/min per nasal cannula. He has lactated Ringer's at 50 mL/h. He is scheduled for colonoscopy today. He remains on Symbicort. Continued on antibiotics in the form of Zosyn. Remains on Protonix. White count 12.5. Hemoglobin 10.6. Platelets 214. Sodium 133. Potassium 3.4. Bicarb 22. BUN 34. Creatinine 1.42. Glucose 107. The patient is seen today January 11, 2025 in follow-up in the intensive care unit. He remains a 3 S. overflow patient. He was currently sitting up in a chair at the bedside. Awake and alert in no acute distress. Maintaining good O2 saturations in the 90s on 2 L/min per nasal cannula. He remains on lactated Ringer's at 75 mL/h. Continued on Zosyn. He did undergo sigmoidoscopy with biopsy of the sigmoid and rectum yesterday. Unable to perform colonoscopy due to stool burden. Blood culture revealed no growth. White count 12.8. Hemoglob in 10.7. Platelets 215. Sodium 135. Potassium 3.7. Bicarb 21. BUN 31. Creatinine 1.31. Glucose 76. He remains on Zosyn. Objective - Vital Signs Vital signs: Vital Signs Temp 97.7 F 01/11/25 08:00 Pulse 67 01/11/25 08:00 Resp 18 01/11/25 08:00 BP 136/81 01/11/25 08:00 Pulse Ox 98 01/11/25 08:00 FiO2 Intake & Output 01/10/25 01/11/25 01/11/25 18:59 06:59 18:59 Intake Total 1100 Output Total 2350 1201 Balance -1250 -1201 Intake: IV 1100 Lactated Ringers 1,000 ml 800 @ 75 mls/hr IV .[id number] TRI Rx#:[id number] Piperacillin-Tazobactam 3 200 .375 gm In Sodium Chloride 0.9% 100 ml @ 25 mls/hr IVPB Q8HR TRI Rx# :[id number] Output: Urine 2350 1200 Stool 1 Other: Voiding Method Indwelling Catheter Indwelling Catheter # Bowel Movements 2 1 - Exam GENERAL EXAM: Alert, very pleasant 79-year-old male, on room air, sitting up in a chair, comfortable in no apparent distress. HEAD: Normocephalic. EYES: Normal reaction of pupils, equal size. NOSE: Clear with pink turbinates. THROAT: No erythema or exudates. NECK: No masses, no JVD. CHEST: No chest wall deformity. LUNGS: Equal air entry with no crackles, wheeze, rhonchi or dullness. CVS: S1 and S2 normal with no audible murmur, regular rhythm. ABDOMEN: No hepatosplenomegaly, normal bowel sounds, no guarding or rigidity. SPINE: No scoliosis or deformity SKIN: No rashes CENTRAL NERVOUS SYSTEM: No focal deficits, tone is normal in all 4 extremities. EXTREMITIES: There is no peripheral edema. No clubbing, no cyanosis. Peripheral pulses are intact. - Labs CBC & Chem 7: 01/11/25 06:16 01/11/25 06:16 Labs: Abnormal Lab Results - Last 24 Hours (Table) 01/11/25 01/11/25 Range/Units 06:16 06:16 WBC 12.82 H (4.50-10.00) 10*3/uL RBC 3.64 L (4.40-5.60) 10*6/uL Hgb 10.7 L (13.0-17.0) g/dL Hct 33.5 L (39.6-50.0) % MCHC 31.9 L (32.0-37.0) g/dL MPV 9.4 L (9.5-12.2) fL Immature Gran # 0.13 H (0.00-0.04) 10*3/uL Neutrophils # 10.78 H (1.80-7.70) 10*3/uL Lymphocytes # 0.83 L (0.90-5.00) 10*3/uL Sodium 135 L (137-145) mmol/L Carbon Dioxide 21 L (22-30) mmol/L BUN 31 H (9-20) mg/dL Creatinine 1.31 H (0.66-1.25) mg/dL Calcium 8.0 L (8.4-10.2) mg/dL Microbiology - Last 24 Hours (Table) 01/07/25 21:45 Blood Culture - Preliminary Blood Assessment and Plan Assessment: Symptomatic bradycardia with orthostatic hypotension on his initial presentation, recovered Chronic GI bleeding, and history of colonic polyps seems to be exacerbated by the fact that the patient is on Eliquis. Hemoglobin stable at 10.7 Acute kidney injury could be related to hypotension or related to dehydration, improving History of paroxysmal atrial fibrillation History of Parkinson disease Plan: The patient was seen and evaluated Labs and medications reviewed Hemoglobin remained stable No further GI bleeding Sigmoidoscopy results reviewed Pathology pending Eliquis remains on hold Remains on Protonix No further bradycardia or near syncope Stable and on room air oxygen The patient is anxious to go home He remains a 3 S. overflow I have personally seen and examined the patient, performed the documentation and the assessment and plan as written. Number of minutes spent on the visit: 10 Dictation was produced using [employer] dictation software. Please excuse any grammatical, word or spelling errors.
--- NOTE | 2025-01-11 11:46 | P.PN ---
Subjective Progress Note Date: 01/11/25 Hospital Course: 79 year old M with PMH of CKD, A-Fib, COPD, Parkinsons presents to the ED for abdominal pain and lightheadedness. Episode began after carrying a 35-pound bag of bird food approximately 30-40 feet, after which patient became "wiped out." Patient measured blood pressure at home which was 44/30. Patient reports history of gastrointestinal bleeding episodes at home, typically seeing small amounts of blood with wiping, but today's episode was different with a larger amount of bl ood noted. Patient has been taking prunes and Dulcolax recently for constipation, resulting in liquid stools. In the ED he underwent extensive evaluation. BP 74/43, HR 61, T 97.5F, 91% on RA. Labs significant for WBC 15.53, RBC 3.79, Hg 11.7, Hct 35.6, APTT 19.7, Cl 108, bicarb 19, BUN 53, Cr 2.16, glu 156, Phos 4.8, Mag 2.6, Trop < 0.012, CK 101, TSH 4.25. UA neg LE or nitrite. C. diff neg. Stool occult +. EKG sinus bradycardia with PVC + QT prolongation. CT AP impacted rectosigmoid colonic stool with stercocral colitis. He did have an episode of hypotension and bradycardia in the ED which results in admission to ICU. Cardiology consulted, bradycardia + hypotension likely related to vasovagal epsiode which resolved with IV hydration, Echo ordered and showed EF of 55 to 60% Started on Zosyn for stercoral colitis on 01/08. Surgery consulted, went colonoscopy on 12/11, was noted to have large volume of stool, sigmoid colon and rectum were noted to have a large area of friable mucosa concern for malignancy, biopsy obtained and pending. 01/11 seen examined at bedside, no acute events overnight. He does not have any new complaints, reported lower abdominal pressure has significantly improved, he did have several bowel movements overnight. He is afebrile with heart rate in 60s, BP 136/81, blood work shows leukocytosis of 12.8, stable hemoglobin 10.7, sodium 135, normal potassium 3.7, creatinine improving 1.31. Patient remains in the ICU with 3 salicylate level. Pertinent positives and negatives as discussed above, a complete review of systems was performed and all other systems are negative. Vitals Signs Reviewed. General: [nontoxic], [no distress], [appears at stated age] Derm: [warm], [dry] Head: [atraumatic], [normocephalic], [symmetric] Eyes: [EOMI], [no lid lag], [anicteric sclera] Mouth: [no lip lesion], [mucus membranes moist] Cardiovascular: [S1S2 reg], [no murmur] Lungs: [CTA bilateral], [no rhonchi, no rales] , [no accessory muscle use] Abdominal: [soft], [lower abdominal tenderness [no guarding], [no appreciable organomegaly] Ext: [no gross muscle atrophy], [bilateral upper and lower extremities edema, has significantly improved since yesterday], [no contractures] Neuro: [ CN II-XI grossly intact], [no focal neuro deficits] Psych: [Alert], [oriented], [appropriate affect] Assessment and Plan: Sepsis secondary to stercoral colitis -Pulmonology, general surgery following -Continue Zosyn 3.75 IV 3 times daily SOT 01/08/2025 -Follow-up biopsy from colonoscopy -Follow-up final blood cultures, plan to transition to ceftriaxone and Flagyl once blood cultures finalized, total 7 days of antibiotics Acute blood loss anemia secondary to lower GI bleed -Surgery following, continue Protonix 40 mg IV twice daily -Hemoglobin stable, no active bleeding 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 daily, Eliquis on hold due to lower GI bleeding, cardiology following, plans to resume Eliquis to decrease dose to 2.5 twice daily COPD not on home oxygen, not in acute exacerbation: Continue Symbicort inhaler Tatian twice daily Depression: Effexor 75 mg p.o. daily Parkinson's: Carbidopa levodopa 25/101.5 tablet p.o. 3 times daily, memantine 10 mg p.o. twice daily Resolved: Bradycardia with prolonged QT DVT ppx SCD Code status: Full code Anticipated discharge place: Home Anticipated discharge time: TBD Objective - Vital Signs Vital signs: Vital Signs Temp 97.7 F 01/11/25 08:00 Pulse 67 01/11/25 08:00 Resp 18 01/11/25 08:00 BP 136/81 01/11/25 08:00 Pulse Ox 98 01/11/25 08:00 FiO2 Intake & Output 01/10/25 01/11/25 01/11/25 18:59 06:59 18:59 Intake Total 1100 Output Total 2350 1201 Balance -1250 -1201 Intake: IV 1100 Lactated Ringers 1,000 ml 800 @ 75 mls/hr IV .[id number] [facility] Rx#:[id number] Piperacillin-Tazobactam 3 200 .375 gm In Sodium Chloride 0.9% 100 ml @ 25 mls/hr IVPB Q8HR [facility] Rx# :[id number] Output: Urine 2350 1200 Stool 1 Other: Voiding Method Indwelling Catheter Indwelling Catheter Indwelling Catheter # Bowel Movements 2 1 - Labs CBC & Chem 7: 01/11/25 06:16 01/11/25 06:16 Labs: Abnormal Lab Results - Last 24 Hours (Table) 01/11/25 01/11/25 Range/Units 06:16 06:16 WBC 12.82 H (4.50-10.00) 10*3/uL RBC 3.64 L (4.40-5.60) 10*6/uL Hgb 10.7 L (13.0-17.0) g/dL Hct 33.5 L (39.6-50.0) % MCHC 31.9 L (32.0-37.0) g/dL MPV 9.4 L (9.5-12.2) fL Immature Gran # 0.13 H (0.00-0.04) 10*3/uL Neutrophils # 10.78 H (1.80-7.70) 10*3/uL Lymphocytes # 0.83 L (0.90-5.00) 10*3/uL Sodium 135 L (137-145) mmol/L Carbon Dioxide 21 L (22-30) mmol/L BUN 31 H (9-20) mg/dL Creatinine 1.31 H (0.66-1.25) mg/dL Calcium 8.0 L (8.4-10.2) mg/dL Microbiology - Last 24 Hours (Table) 01/07/25 21:45 Blood Culture - Preliminary Blood
--- NOTE | 2025-01-11 11:49 | P.PN ---
Subjective Progress Note Date: 01/10/25 Hospital Course: 79 year old M with PMH of CKD, A-Fib, COPD, Parkinsons presents to the ED for abdominal pain and lightheadedness. Episode began after carrying a 35-pound bag of bird food approximately 30-40 feet, after which patient became "wiped out." Patient measured blood pressure at home which was 44/30. Patient reports history of gastrointestinal bleeding episodes at home, typically seeing small amounts of blood with wiping, but today's episode was different with a larger amount of bl ood noted. Patient has been taking prunes and Dulcolax recently for constipation, resulting in liquid stools. In the ED he underwent extensive evaluation. BP 74/43, HR 61, T 97.5F, 91% on RA. Labs significant for WBC 15.53, RBC 3.79, Hg 11.7, Hct 35.6, APTT 19.7, Cl 108, bicarb 19, BUN 53, Cr 2.16, glu 156, Phos 4.8, Mag 2.6, Trop < 0.012, CK 101, TSH 4.25. UA neg LE or nitrite. C. diff neg. Stool occult +. EKG sinus bradycardia with PVC + QT prolongation. CT AP impacted rectosigmoid colonic stool with stercocral colitis. He did have an episode of hypotension and bradycardia in the ED which results in admission to ICU. Cardiology consulted, bradycardia + hypotension likely related to vasovagal epsiode which resolved with IV hydration, Echo ordered and showed EF of 55 to 60% Started on Zosyn for stercoral colitis on 01/08. Surgery consulted, 01/10 seen examined at bedside, no acute events overnight. He does not have any new complaints, reported lower abdominal pressure, passing gas, had a bowel movement overnight, plan for colonoscopy later today. He is afebrile with heart rate in 60s blood pressure improved his leukocytosis is resolving 12.5, hemoglobin stable 10.6, sodium 133, potassium 3.4, creatinine improving 1.42. Discussed with case management Pertinent positives and negatives as discussed above, a complete review of systems was performed and all other systems are negative. Vitals Signs Reviewed. General: [nontoxic], [no distress], [appears at stated age] Derm: [warm], [dry] Head: [atraumatic], [normocephalic], [symmetric] Eyes: [EOMI], [no lid lag], [anicteric sclera] Mouth: [no lip lesion], [mucus membranes moist] Cardiovascular: [S1S2 reg], [no murmur] Lungs: [CTA bilateral], [no rhonchi, no rales] , [no accessory muscle use] Abdominal: [soft], [lower abdominal tenderness [no guarding], [no appreciable organomegaly] Ext: [no gross muscle atrophy], [bilateral upper and lower extremities edema, has significantly improved since yesterday], [no contractures] Neuro: [ CN II-XI grossly intact], [no focal neuro deficits] Psych: [Alert], [oriented], [appropriate affect] Assessment and Plan: Sepsis secondary to stercoral colitis -Pulmonology, general surgery following -Continue Zosyn 3.75 IV 3 times daily SOT 01/08/2025 -Follow-up biopsy from colonoscopy -Follow-up final blood cultures, plan to transition to ceftriaxone and Flagyl once blood cultures finalized, total 7 days of antibiotics Acute blood loss anemia secondary to lower GI bleed -Surgery following, continue Protonix 40 mg IV twice daily -Hemoglobin stable, no active bleeding 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 daily, Eliquis on hold due to lower GI bleeding, cardiology following, plans to resume Eliquis to decrease dose to 2.5 twice daily COPD not on home oxygen, not in acute exacerbation: Continue Symbicort inhaler Tatian twice daily Depression: Effexor 75 mg p.o. daily Parkinson's: Carbidopa levodopa 25/101.5 tablet p.o. 3 times daily, memantine 10 mg p.o. twice daily Resolved: Bradycardia with prolonged QT DVT ppx SCD Code status: Full code Anticipated discharge place: Home Anticipated discharge time: TBD Objective - Vital Signs Vital signs: Vital Signs Temp 97.7 F 01/11/25 08:00 Pulse 67 01/11/25 08:00 Resp 18 01/11/25 08:00 BP 136/81 01/11/25 08:00 Pulse Ox 98 01/11/25 08:00 FiO2 Intake & Output 01/10/25 01/11/25 01/11/25 18:59 06:59 18:59 Intake Total 1100 Output Total 2350 1201 Balance -1250 -1201 Intake: IV 1100 Lactated Ringers 1,000 ml 800 @ 75 mls/hr IV .[id number] [facility] Rx#:[id number] Piperacillin-Tazobactam 3 200 .375 gm In Sodium Chloride 0.9% 100 ml @ 25 mls/hr IVPB Q8HR [facility] Rx# :[id number] Output: Urine 2350 1200 Stool 1 Other: Voiding Method Indwelling Catheter Indwelling Catheter Indwelling Catheter # Bowel Movements 2 1 - Labs CBC & Chem 7: 01/11/25 06:16 01/11/25 06:16 Labs: Abnormal Lab Results - Last 24 Hours (Table) 01/11/25 01/11/25 Range/Units 06:16 06:16 WBC 12.82 H (4.50-10.00) 10*3/uL RBC 3.64 L (4.40-5.60) 10*6/uL Hgb 10.7 L (13.0-17.0) g/dL Hct 33.5 L (39.6-50.0) % MCHC 31.9 L (32.0-37.0) g/dL MPV 9.4 L (9.5-12.2) fL Immature Gran # 0.13 H (0.00-0.04) 10*3/uL Neutrophils # 10.78 H (1.80-7.70) 10*3/uL Lymphocytes # 0.83 L (0.90-5.00) 10*3/uL Sodium 135 L (137-145) mmol/L Carbon Dioxide 21 L (22-30) mmol/L BUN 31 H (9-20) mg/dL Creatinine 1.31 H (0.66-1.25) mg/dL Calcium 8.0 L (8.4-10.2) mg/dL Microbiology - Last 24 Hours (Table) 01/07/25 21:45 Blood Culture - Preliminary Blood
--- NOTE | 2025-01-11 14:04 | P.PN ---
Subjective Progress Note Date: 01/11/25 Patient seen and examined at bedside. No acute events. Denies abdominal pain. Having bowel function since colonoscopy Objective - Vital Signs Vital signs: Vital Signs Temp 97.7 F 01/11/25 08:00 Pulse 64 01/11/25 12:00 Resp 16 01/11/25 12:00 BP 120/45 01/11/25 12:00 Pulse Ox 97 01/11/25 12:00 FiO2 Intake & Output 01/10/25 01/11/25 01/11/25 18:59 06:59 18:59 Intake Total 1100 Output Total 2350 1201 Balance -1250 -1201 Intake: IV 1100 Lactated Ringers 1,000 ml 800 @ 75 mls/hr IV .[id number] [facility] Rx#:[id number] Piperacillin-Tazobactam 3 200 .375 gm In Sodium Chloride 0.9% 100 ml @ 25 mls/hr IVPB Q8HR [facility] Rx# :[id number] Output: Urine 2350 1200 Stool 1 Other: Voiding Method Indwelling Catheter Indwelling Catheter Indwelling Catheter # Bowel Movements 2 1 - Constitutional General appearance: Present: cooperative - Gastrointestinal Gastrointestinal Comment(s): Soft, nontender - Labs CBC & Chem 7: 01/11/25 06:16 01/11/25 06:16 Labs: Abnormal Lab Results - Last 24 Hours (Table) 01/11/25 01/11/25 Range/Units 06:16 06:16 WBC 12.82 H (4.50-10.00) 10*3/uL RBC 3.64 L (4.40-5.60) 10*6/uL Hgb 10.7 L (13.0-17.0) g/dL Hct 33.5 L (39.6-50.0) % MCHC 31.9 L (32.0-37.0) g/dL MPV 9.4 L (9.5-12.2) fL Immature Gran # 0.13 H (0.00-0.04) 10*3/uL Neutrophils # 10.78 H (1.80-7.70) 10*3/uL Lymphocytes # 0.83 L (0.90-5.00) 10*3/uL Sodium 135 L (137-145) mmol/L Carbon Dioxide 21 L (22-30) mmol/L BUN 31 H (9-20) mg/dL Creatinine 1.31 H (0.66-1.25) mg/dL Calcium 8.0 L (8.4-10.2) mg/dL Microbiology - Last 24 Hours (Table) 01/07/25 21:45 Blood Culture - Preliminary Blood Assessment and Plan Plan: 79-year-old male status post colonoscopy with finding of ischemic colitis versus possibility of malignancy. Biopsies are pending. Advance patient to full liquid diet. Biopsies can be discussed as outpatient and this was discussed with patient and patient's spouse at bedside. Continue medical management at this time.
[2025-01-12 03:48] LABS: Basophils # (A) 0.03 10*3/uL (0.00-0.10); Basophils % (A) 0.3 %; Eosinophils # (A) 0.33 10*3/uL (0.04-0.35); Eosinophils % (A) 3.3 %; HCT 29.5 % (39.6-50.0); HGB 9.5 g/dL (13.0-17.0); Lymphocytes # (A) 1.13 10*3/uL (0.90-5.00); Lymphocytes % (A) 11.5 %; MCH 29.8 pg (27.0-32.0); MCHC 32.2 g/dL (32.0-37.0); MCV 92.5 fL (80.0-97.0); Monocytes # (A) 0.99 10*3/uL (0.20-1.00); Monocytes % (A) 10.0 %; Neutrophils # (A) 7.16 10*3/uL (1.80-7.70); Neutrophils % (A) 72.7 %; Platelet Count 228 10*3/uL (140-440); RBC 3.19 10*6/uL (4.40-5.60); RDW 14.5 % (11.5-14.5); WBC 9.86 10*3/uL (4.50-10.00)
[2025-01-12 04:19] LABS: African American GFR (CKD) 85 (>60 ml/min/1.73 sqM); Anion Gap 9 mmol/L; Blood Urea Nitrogen 23 mg/dL (9-20); Calcium 7.3 mg/dL (8.4-10.2); Carbon Dioxide 19 mmol/L (22-30); Chloride 105 mmol/L (98-107); Glucose 86 mg/dL (74-99); Non-African American GFR(CKD) 74 (>60 ml/min/1.73 sqM); Potassium 3.7 mmol/L (3.5-5.1); Sodium 133 mmol/L (137-145)
[2025-01-12] MEDS: LACTATED RINGERS 1,000 ML IV SCH (09:01)
--- NOTE | 2025-01-12 11:36 | P.PN ---
Subjective Progress Note Date: 01/12/25 This is a 79-year-old white male with history of chronic atrial fibrillation, chronic kidney disease, Parkinson disease, previous history of lower GI bleeding from polyps, patient was seen in the ER yesterday with chief complaint of syncope at home and has been complaining of lightheadedness and dizziness with some vague abdominal pain and pressure. Apparently this all started after he was carrying a 35 pound bag of bird food for about 40 feet. He felt he was wiped out, blood pressure was noted to be low, and he also noted some more blood per rectum. Recently the patient has been taking prunes and Dulcolax for constipation. And because of this he was having intermittent episodes of liquid stools. At any rate patient was seen in the ER, and he was noted to have significant bradycardia. However in spite of bradycardia, patient maintained adequate blood pressure, did not require any pressors or any inotropes. I was notified about this patient by the ER physician, and cardiology was also notified at the same time, and the recommendation was to admit the patient to the ICU for close monitoring. Found out this morning that the patient was admitted to the ICU as an overflow. Seems to be comfortable, not in any distress, patient has sinus bradycardia intermittently but during my evaluation he had a sinus rhythm rate of 70/min. Patient was noted to have leukocytosis with WC of 17.9 hemoglobin 12.9 electrolytes are normal however bicarb is 14 BUN is 54 creatinine 1.73. Patient had positive Hemoccult stools, negative C. difficile toxin. Patient is normally on Eliquis at home which is presently on hold, he is also normally on amiodarone for atrial fibrillation. The patient is seen today January 09, 2025 in follow-up on the intensive care unit. He is currently sitting up in bed. Awake and alert in no acute distress. He is maintaining good O2 saturations in the mid 90s on room air. He has been afebrile. Hemodynamically stable. Echocardiogram revealed preserved left vent ricular systolic function with an ejection fraction of 55 to 60%. White count 15.7. Hemoglobin 11.5. Platelets 237. Sodium 133. Potassium 3.9. Bicarb 20. BUN 45. Creatinine 1.54. Glucose 125. He is scheduled for a colonoscopy for his rectal bleeding. Eliquis remains on hold. No significant bradycardia overnight. No chest pain. No palpitations. The patient is seen today January 10, 2025 in follow-up in the intensive care unit. He is a 3 S. overflow patient. He is currently sitting up in a chair at the bedside. Awake and alert in no acute distress. Maintaining good O2 saturations in the 90s on 2 L/min per nasal cannula. He has lactated Ringer's at 50 mL/h. He is scheduled for colonoscopy today. He remains on Symbicort. Continued on antibiotics in the form of Zosyn. Remains on Protonix. White count 12.5. Hemoglobin 10.6. Platelets 214. Sodium 133. Potassium 3.4. Bicarb 22. BUN 34. Creatinine 1.42. Glucose 107. The patient is seen today January 11, 2025 in follow-up in the intensive care unit. He remains a 3 S. overflow patient. He was currently sitting up in a chair at the bedside. Awake and alert in no acute distress. Maintaining good O2 saturations in the 90s on 2 L/min per nasal cannula. He remains on lactated Ringer's at 75 mL/h. Continued on Zosyn. He did undergo sigmoidoscopy with biopsy of the sigmoid and rectum yesterday. Unable to perform colonoscopy due to stool burden. Blood culture revealed no growth. White count 12.8. Hemoglob in 10.7. Platelets 215. Sodium 135. Potassium 3.7. Bicarb 21. BUN 31. Creatinine 1.31. Glucose 76. He remains on Zosyn. The patient is seen today January 12, 2025 in follow-up in the intensive care unit. He remains at 3 S. overflow. He is sitting up in a chair at the bedside. Awake and alert no acute distress. Maintaining good O2 saturations in the 90s on room air oxygen. He is receiving lactated Ringer's at 75 mL/h. Blood cultures revealed no growth. White count 9.8. Hemoglobin 9.5. Platelets 228. Sodium 133. Potassium 3.7. Bicarb 19. BUN 23. Creatinine 0.98. Glucose 86. He remains on Zosyn. Objective - Vital Signs Vital signs: Vital Signs Temp 97.6 F 01/12/25 08:00 Pulse 64 01/12/25 08:00 Resp 24 01/12/25 08:00 BP 124/81 01/12/25 08:00 Pulse Ox 98 01/12/25 08:52 FiO2 Intake & Output 01/11/25 01/12/25 01/12/25 18:59 06:59 18:59 Intake Total 600 1300 Output Total 1201 1600 600 Balance -601 -1600 700 Intake: IV 600 1300 Lactated Ringers 1,000 ml 400 1200 @ 75 mls/hr IV .[id number] [facility] Rx#:[id number] Piperacillin-Tazobactam 3 200 100 .375 gm In Sodium Chloride 0.9% 100 ml @ 25 mls/hr IVPB Q8HR [facility] Rx# :[id number] Output: Urine 1200 1600 600 Uretheral (Peñaloza) 1200 Stool 1 Other: Voiding Method Indwelling Catheter Indwelling Catheter Indwelling Catheter - Exam GENERAL EXAM: Alert, 79-year-old male, on room air, sitting up in a chair, in no apparent distress. HEAD: Normocephalic. EYES: Normal reaction of pupils, equal size. NOSE: Clear with pink turbinates. THROAT: No erythema or exudates. NECK: No masses, no JVD. CHEST: No chest wall deformity. LUNGS: Equal air entry with no crackles, wheeze, rhonchi or dullness. CVS: S1 and S2 normal with no audible murmur, regular rhythm. ABDOMEN: No hepatosplenomegaly, normal bowel sounds, no guarding or rigidity. SPINE: No scoliosis or deformity SKIN: No rashes CENTRAL NERVOUS SYSTEM: No focal deficits, tone is normal in all 4 extremities. EXTREMITIES: There is no peripheral edema. No clubbing, no cyanosis. Peripheral pulses are intact. - Labs CBC & Chem 7: 01/12/25 02:57 01/12/25 02:57 Labs: Abnormal Lab Results - Last 24 Hours (Table) 01/12/25 01/12/25 Range/Units 02:57 02:57 RBC 3.19 L (4.40-5.60) 10*6/uL Hgb 9.5 L (13.0-17.0) g/dL Hct 29.5 L (39.6-50.0) % MPV 9.3 L (9.5-12.2) fL Immature Gran # 0.22 H (0.00-0.04) 10*3/uL Sodium 133 L (137-145) mmol/L Carbon Dioxide 19 L (22-30) mmol/L BUN 23 H (9-20) mg/dL Calcium 7.3 L (8.4-10.2) mg/dL Microbiology - Last 24 Hours (Table) 01/07/25 21:45 Blood Culture - Preliminary Blood Assessment and Plan Assessment: Symptomatic bradycardia with orthostatic hypotension on his initial presentation, recovered Chronic GI bleeding, and history of colonic polyps seems to be exacerbated by the fact that the patient is on Eliquis. Hemoglobin stable at 9.5 Acute kidney injury could be related to hypotension or related to dehydration, improving History of paroxysmal atrial fibrillation History of Parkinson disease Plan: The patient was seen and evaluated Labs and medications reviewed Pathology pending Hemoglobin remained stable No further GI bleeding Eliquis remains on hold Remains on Protonix Lactated Ringer's at 75 mL/h Remains on Zosyn Stable and on room air oxygen He remains a 3 S. overflow I have personally seen and examined the patient, performed the documentation and the assessment and plan as written. Number of minutes spent on the visit: 10 Dictation was produced using [employer] dictation software. Please excuse any grammatical, word or spelling errors.
[2025-01-12 12:36] VITALS: BP 138/83; PULSE 62; RESP 16; TEMP 97.9
--- NOTE | 2025-01-12 13:15 | P.DS ---
Providers Date of admission: 01/07/25 22:08 Attending physician: Kassandra Ortiz MD Consults: 01/07/25 22:08 Consult Physician Routine Consulting Provider: Dave Cifuentes Consult Reason/Comments: jenna Do you want consulting provider notified?: Yes Consult Physician Routine Consulting Provider: Matty Obando Consult Reason/Comments: jenna Do you want consulting provider notified?: Yes 01/08/25 05:37 Consult Physician Routine Consulting Provider: Anabelle Alberto Consult Reason/Comments: GIB +occult Do you want consulting provider notified?: Yes, Notify in am Primary care physician: Crescencio Ellington [facility] Course: Discharge Diagnosis: Sepsis secondary to stercoral colitis Acute blood loss anemia secondary to lower GI bleed 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 Episode began after carrying a 35-pound bag of bird food approximately 30-40 feet, after which patient became "wiped out." Patient measured blood pressure at home which was 44/30. Patient reports history of gastrointestinal bleeding episodes at home, typically seeing small amounts of blood with wiping, but today's episode was different with a larger amount of blood noted. Patient has been taking prunes and Dulcolax recently for constipation, resulting in liquid stools. In the ED he underwent extensive evaluation. BP 74/43, HR 61, T 97.5F, 91% on RA. Labs significant for WBC 15.53, RBC 3.79, Hg 11.7, Hct 35.6, APTT 19.7, Cl 108, bicarb 19, BUN 53, Cr 2.16, glu 156, Phos 4.8, Mag 2.6, Trop < 0.012, CK 101, TSH 4.25. UA neg LE or nitrite. C. diff neg. Stool occult +. EKG sinus bradycardia with PVC + QT prolongation. CT AP impacted rectosigmoid colonic stool with stercocral colitis. He did have an episode of hypotension and bradycardia in the ED which results in admission to ICU. ardiology consulted, bradycardia + hypotension likely related to vasovagal epsiode which resolved with IV hydration, Echo ordered and showed EF of 55 to 60% Started on Zosyn for stercoral colitis on 01/08. Surgery consulted, went colonoscopy on 12/11, was noted to have large volume of stool, sigmoid colon and rectum were noted to have a large area of friable mucosa concern for malignancy, biopsy obtained and pending. 01/12: Seen examined at bedside, no acute events overnight, he states that his abdominal pain has completely resolved, patient's vitals are stable, his WBC count is normal, hemoglobin 9.5, creatinine improved to 0.98. Patient is optimized for discharge, will be provided with 3-day supply of ciprofloxacin and Flagyl to complete 7 days of treatment for stercoral colitis, patient to follow- up in regards of his biopsy result with surgeon, follow-up with PCP. Of note, per cardiology recommendations, his Eliquis was decreased to 2.5 twice daily Patient seen and examined at bedside. Vital signs reviewed and stable. General: Nontoxic, no distress, appears at stated age Derm: Warm, dry Head: Atraumatic, normocephalic, symmetric Eyes: EOMI, no lid lag, anicteric sclera Mouth: No lip lesion, mucus membranes moist Cardiovascular: S1S2 reg, no murmur Lungs: CTA bilateral, no rhonchi, no rales, no accessory muscle use Abdominal: Soft, nontender to palpation, no guarding, no appreciable organomegaly Ext: No gross muscle atrophy, no edema, no contractures Neuro: CN II-XI grossly intact, no focal neuro deficits Psych: Alert, oriented, appropriate affect A total of 40 minutes of time were spent preparing this complex discharge summary. Patient Condition at Discharge: Serious Plan - Discharge Summary Discharge Rx Participant: No New Discharge Prescriptions: New Ciprofloxacin HCl 500 mg PO Q12H #6 tab Pantoprazole [Protonix] 40 mg PO DAILY #30 tab metroNIDAZOLE [Flagyl] 500 mg PO TID #9 tab Continue Budesonide-Formot 160-4.5 Mcg [Symbicort 160-4.5 Mcg Inhaler] 2 puff INHALATION RT-BID PRN PRN Reason: Shortness Of Breath Spironolactone [Aldactone] 25 mg PO DAILY lisinopriL [Zestril] 10 mg PO BID EPINEPHrine [Epipen 2-Adolfo] 0.3 mg IM ONCE PRN PRN Reason: Anaphylaxis Amiodarone [Cordarone] 200 mg PO DAILY Carbidopa-Levodopa 25-100 mg [Sinemet 25-100 mg] 1.5 tab PO TID Memantine [Namenda] 10 mg PO BID Venlafaxine HCl [Effexor XR] 75 mg PO DAILY Changed Apixaban [Eliquis] 2.5 mg PO BID #60 tab Discharge Medication List Budesonide-Formot 160-4.5 Mcg [Symbicort 160-4.5 Mcg Inhaler] 2 puff INHALATION RT-BID PRN 03/13/15 [History] EPINEPHrine [Epipen 2-Adolfo] 0.3 mg IM ONCE PRN 01/28/17 [History] Spironolactone [Aldactone] 25 mg PO DAILY 01/28/17 [History] lisinopriL [Zestril] 10 mg PO BID 01/28/17 [History] Amiodarone [Cordarone] 200 mg PO DAILY 01/07/25 [History] Carbidopa-Levodopa 25-100 mg [Sinemet 25-100 mg] 1.5 tab PO TID 01/07/25 [History] Memantine [Namenda] 10 mg PO BID 01/07/25 [History] Venlafaxine HCl [Effexor XR] 75 mg PO DAILY 01/07/25 [History] Apixaban [Eliquis] 2.5 mg PO BID #60 tab 01/12/25 [Rx] Ciprofloxacin HCl 500 mg PO Q12H #6 tab 01/12/25 [Rx] Pantoprazole [Protonix] 40 mg PO DAILY #30 tab 01/12/25 [Rx] metroNIDAZOLE [Flagyl] 500 mg PO TID #9 tab 01/12/25 [Rx] Follow up Appointment(s)/Referral(s): Crescencio Monge DO [Primary Care Provider] - 1-2 days Anabelle Alberto DO [Doctor of Osteopathic Medicine] - 2 Weeks Activity/Diet/Wound Care/Special Instructions: Please, follow-up with your primary care physician, surgeon. Please, note, your Eliquis was decreased to 2.5 mg twice a day. Please, complete antibiotics for total 7 days of treatment with Flagyl and ciprofloxacin as prescribed. Discharge Disposition: HOME SELF-CARE
--- NOTE | 2025-01-12 13:15 | P.PN ---
Subjective Progress Note Date: 01/12/25 SURGICAL PROGRESS NOTE HISTORY OF PRESENT ILLNESS: Patient sitting at bedside chair. Denies any abdominal pain. Denies any nausea or vomiting. Tolerated full liquid diet. He does report having a small amount of blood in the stools. Afebrile. Patient reports possible discharge later today. Hemoglobin 9.5 WBC down from 12.8-9.86 PHYSICAL EXAM: VITAL SIGNS: Reviewed. GENERAL: Well-developed in no acute distress. ABDOMEN: Soft. Mildly distended. Nontender. NEUROLOGIC: Alert and oriented. Cranial nerves II through XII grossly intact. ASSESSMENT: 1. 79-year-old male with GI bleed status post aborted colonoscopy with sigmoidoscopy with biopsy of the sigmoid and rectum with suspected ischemic colitis versus malignancy PLAN: - Continue full liquid diet - Follow-up on biopsy results - Continue medical management Physician Business Project Manager note has been reviewed by physician. Signing provider agrees with the documented findings, assessment, and plan of care. Objective - Vital Signs Vital signs: Vital Signs Temp 97.9 F 01/12/25 12:35 Pulse 62 01/12/25 12:35 Resp 16 01/12/25 12:35 BP 138/83 01/12/25 12:35 Pulse Ox 97 01/12/25 12:35 FiO2 Intake & Output 01/11/25 01/12/25 01/12/25 18:59 06:59 18:59 Intake Total 600 2640 Output Total 1201 1600 900 Balance -601 -1600 1740 Intake: IV 600 1600 Lactated Ringers 1,000 ml 400 1500 @ 75 mls/hr IV .[id number] RTI Rx#:[id number] Piperacillin-Tazobactam 3 200 100 .375 gm In Sodium Chloride 0.9% 100 ml @ 25 mls/hr IVPB Q8HR TRI Rx# :[id number] Oral 1040 Output: Urine 1200 1600 900 Uretheral (Peñaloza) 1200 Stool 1 Other: Voiding Method Indwelling Catheter Indwelling Catheter Indwelling Catheter - Labs CBC & Chem 7: 01/12/25 02:57 01/12/25 02:57 Labs: Abnormal Lab Results - Last 24 Hours (Table) 01/12/25 01/12/25 Range/Units 02:57 02:57 RBC 3.19 L (4.40-5.60) 10*6/uL Hgb 9.5 L (13.0-17.0) g/dL Hct 29.5 L (39.6-50.0) % MPV 9.3 L (9.5-12.2) fL Immature Gran # 0.22 H (0.00-0.04) 10*3/uL Sodium 133 L (137-145) mmol/L Carbon Dioxide 19 L (22-30) mmol/L BUN 23 H (9-20) mg/dL Calcium 7.3 L (8.4-10.2) mg/dL Microbiology - Last 24 Hours (Table) 01/07/25 21:45 Blood Culture - Preliminary Blood Assessment and Plan Assessment: Continue full liquid diet - Follow-up on biopsy results - Continue medical management follow up outpatient Time with Patient: Less than 30
== END 2025-01-12 14:45 | disposition home or self-care (01) | DRG 872 ==
LOC: EC 19:00 → 3SCARD 22:08 → 2SICU 22:49
PROVIDERS: ADMIT Internal Medicine; ATTEND Internal Medicine
PROC: 0DBN8ZX Excision of Sigmoid Colon, Via Natural or Artificial Opening Endoscopic, Diagnostic (ICD-10-PCS; 2025-01-10)
PROC: 0DBP8ZX Excision of Rectum, Via Natural or Artificial Opening Endoscopic, Diagnostic (ICD-10-PCS; principal; 2025-01-10 14:30)
DX: A41.9 Sepsis, unspecified organism (principal); K55.9 Vascular disorder of intestine, unspecified; D62 Acute posthemorrhagic anemia; N17.9 Acute kidney failure, unspecified; E86.0 Dehydration; I48.0 Paroxysmal atrial fibrillation; G20.A1 Parkinson's disease without dyskinesia, without mention of fluctuations; J44.9 Chronic obstructive pulmonary disease, unspecified; I12.9 Hypertensive chronic kidney disease with stage 1 through stage 4 chronic kidney disease, or unspecified chronic kidney disease; F32.A Depression, unspecified; I48.20 Chronic atrial fibrillation, unspecified; K92.1 Melena; K56.41 Fecal impaction; K52.89 Other specified noninfective gastroenteritis and colitis; N18.2 Chronic kidney disease, stage 2 (mild); I95.1 Orthostatic hypotension; I49.3 Ventricular premature depolarization; I25.10 Atherosclerotic heart disease of native coronary artery without angina pectoris; Z79.01 Long term (current) use of anticoagulants; Z79.899 Other long term (current) drug therapy; Z88.7 Allergy status to serum and vaccine; Z88.8 Allergy status to other drugs, medicaments and biological substances; Z91.013 Allergy to seafood; Z86.0100 Personal history of colon polyps, unspecified; Z79.51 Long term (current) use of inhaled steroids; Z82.49 Family history of ischemic heart disease and other diseases of the circulatory system
CPT/HCPCS: 36415; 45380; 51702; 74176; 80048; 80053; 81001; 82272; 82550; 83605; 83735; 83880; 84100; 84443; 84484; 85025; 85027; 85610; 85730; 87040; 87493; 88305; 93005; 93306; 96361; 96374; 96375; 99291